=== PATIENT | female | born 1965 | race Caucasian/White ===

== ENCOUNTER 2016-05-02 08:42 | Outpatient (CLI) | END 2016-05-02 08:43 | disposition home or self-care (01) ==

== ENCOUNTER 2016-07-31 18:34 | Emergency (ER) | payer OTHER, MEDICAID ==
[2016-07-31] MEDS ORDERED: SODIUM CHLORIDE 0.9% 1,000 ML IV ONE (19:09)
[2016-07-31] MEDS ORDERED: ONDANSETRON 4 MG/2 ML VIAL IVP STA (19:09)
[2016-07-31] MEDS ORDERED: PROMETHAZINE 25 MG/1 ML VIAL ONE (20:18)
[2016-07-31] MEDS ORDERED: PROMETHAZINE INJ 25 MG in SODIUM CHLORIDE 0.9% 50 ML IV STA (20:19)
[2016-07-31] MEDS ORDERED: ONDANSETRON 4 MG/2 ML VIAL ONE (20:39)
== END 2016-07-31 21:51 | disposition home or self-care (01) ==
DX: R11.2 Nausea with vomiting, unspecified (principal); R51 Headache; C50.919 Malignant neoplasm of unspecified site of unspecified female breast; Z79.810 Long term (current) use of selective estrogen receptor modulators (SERMs)

== ENCOUNTER 2016-08-04 10:09 | Emergency (ER) | payer OTHER, MEDICAID ==
[2016-08-04] MEDS ORDERED: SODIUM CHLORIDE 0.9% 1,000 ML IV ONE ×2 (10:40→14:21)
[2016-08-04] MEDS ORDERED: ONDANSETRON 4 MG/2 ML VIAL IVP STA (10:40)
[2016-08-04] MEDS ORDERED: PROMETHAZINE INJ 25 MG in SODIUM CHLORIDE 0.9% 50 ML IV STA (10:41)
[2016-08-04] MEDS ORDERED: PROMETHAZINE 25 MG/1 ML VIAL ONE (11:12)
[2016-08-04] MEDS ORDERED: MORPHINE 2 MG/ML SYRINGE IVP STA (11:29)
[2016-08-04] MEDS ORDERED: MORPHINE 2 MG/ML SYRINGE ONE (11:37)
== END 2016-08-04 15:00 | disposition home or self-care (01) ==
DX: E86.0 Dehydration (principal); R11.2 Nausea with vomiting, unspecified; R51 Headache

== ENCOUNTER 2016-12-11 09:45 | Outpatient (CLI) | payer OTHER, MEDICAID ==
[2016-12-13 14:24] LABS: ANA SCREEN NEGATIVE (NEGATIVE)
== END 2016-12-11 09:46 | disposition home or self-care (01) ==
LOC: LAB.S 09:45
PROVIDERS: ATTEND Nurse Practitioner Family
DX: M25.50 Pain in unspecified joint (principal)
CPT/HCPCS: 36415; 84443; 85651; 86038; 86140; 86430

== ENCOUNTER 2017-11-21 15:50 | Outpatient (CLI) | payer OTHER | END 2017-11-21 15:51 | disposition home or self-care (01) | LOC: RT.S 15:50 | PROVIDERS: ATTEND Nurse Practitioner Family | DX: R00.2 Palpitations (principal) | CPT/HCPCS: 93005 ==

== ENCOUNTER 2018-02-13 09:13 | Outpatient (CLI) | payer OTHER ==
--- NOTE | 2018-02-13 11:47 | CARDIAC PROCEDURE NOTE ---
DATE OF SERVICE: 02/13/2018 Physician: Helena Veliz MD INDICATION: Palpitations, recurrent. CORONARY RISK FACTORS: None. After signing informed consent, the patient exercised on a Rohan protocol treadmill stress test. Resting EKG: NSR, early repolarization (normal variant). Patient exercised for 8 minutes and 21 seconds. She achieved a peak heart rate of 150 (88% predicted maximum heart rate for age). She achieved 10.16 METS. The patient had minimal shortness of breath, no chest pain, no complaints of palpitations. Peak EKG: within normal limits, no ischemic ST or T wave changes. There were no dysrhythmias seen at rest, with exercise or in recovery. IMPRESSION: 1. Good exercise tolerance. 2. No ischemic changes on a Rohan-protocol treadmill stress test at an adequate level of stress. 2. Consider a 24-hour (or 48-hour) Holter monitor to evaluate her symptoms of palpitations. cc: CHRISTINA Salter TD: 02/13/2018 11:25 MTDD
== END 2018-02-13 09:14 | disposition home or self-care (01) ==
LOC: DI 09:13
PROVIDERS: ATTEND Nurse Practitioner Family
DX: R00.2 Palpitations (principal)

== ENCOUNTER 2018-08-21 07:29 | Outpatient (CLI) | payer OTHER ==
[2018-08-21 11:04] LABS: ALBUMIN 4.2 g/dL (3.2-5.5); ALBUMIN/GLOBULIN RATIO 1.6 (1.0-2.2); ALKALINE PHOSPHATASE 59 IU/L (42-121); ALT ALANINE AMINOTRANSFERASE 15 IU/L (10-60); AST ASPARTATE AMINOTRANSFERASE 19 IU/L (10-42); BILIRUBIN,TOTAL 0.8 mg/dL (0.2-1.0); BUN - BLOOD UREA NITROGEN 18 mg/dL (6-20); CALCIUM 9.5 mg/dL (8.5-10.3); CARBON DIOXIDE - CO2 29 mmol/L (21-32); CHLORIDE 101 mmol/L (101-111); CHOL/HDL RATIO 4.4 (<4.4); CHOLESTEROL 261 mg/dL; CREATININE 0.8 mg/dL (0.4-1.0); GFR - MDRD 76 (>89); GLUCOSE 95 mg/dL (70-100); HDL CHOLESTEROL 60 mg/dL; LDL CHOLESTEROL,CALCULATED 179 mg/dL; SODIUM 137 mmol/L (135-145); TOTAL PROTEIN 6.9 g/dL (6.7-8.2); VLDL CHOLESTEROL 22 mg/dL
[2018-08-21 11:22] LABS: BASOPHILS % (AUTO) 0.4 %; EOSINOPHILS # (AUTO) 0.2 10^3/uL (0.0-0.7); EOSINOPHILS % (AUTO) 4.4 %; HGB - HEMOGLOBIN 12.9 g/dL (12.0-16.0); LYMPHOCYTES # (AUTO) 1.6 10^3/uL (1.5-3.5); LYMPHOCYTES % (AUTO) 43.7 %; MEAN CORPUSCULAR HEMOGLOBIN 30.1 pg (27.0-31.0); MEAN CORPUSCULAR VOLUME 91.1 fL (81.0-99.0); MEAN PLATELET VOLUME 10.4 fL (7.9-10.8); MONOCYTES # (AUTO) 0.3 10^3/uL (0.0-1.0); MONOCYTES % (AUTO) 8.9 %; NEUTROPHILS # (AUTO) 1.6 10^3/uL (1.5-6.6); NEUTROPHILS % (AUTO) 42.6 %; PLT - PLATELET COUNT 136 10^3/uL (130-450); RED BLOOD COUNT 4.31 10^6/uL (4.20-5.40); RED CELL DISTRIBUTION WIDTH 13.5 % (12.0-15.0); WHITE BLOOD COUNT 3.8 x10^3/uL (4.8-10.8)
== END 2018-08-21 07:30 | disposition home or self-care (01) ==
LOC: LAB.F 07:29
PROVIDERS: ATTEND Nurse Practitioner Family
DX: Z85.3 Personal history of malignant neoplasm of breast (principal); Z13.228 Encounter for screening for other metabolic disorders; E78.5 Hyperlipidemia, unspecified
CPT/HCPCS: 36415; 80050; 80061; 83721

== ENCOUNTER 2018-10-23 07:31 | Outpatient (CLI) | payer OTHER ==
[2018-10-23 11:50] LABS: ALBUMIN 4.3 g/dL (3.2-5.5); ALBUMIN/GLOBULIN RATIO 1.4 (1.0-2.2); ALKALINE PHOSPHATASE 61 IU/L (42-121); ALT ALANINE AMINOTRANSFERASE 19 IU/L (10-60); AST ASPARTATE AMINOTRANSFERASE 21 IU/L (10-42); BILIRUBIN,TOTAL 0.6 mg/dL (0.2-1.0); BUN - BLOOD UREA NITROGEN 15 mg/dL (6-20); CALCIUM 9.4 mg/dL (8.5-10.3); CARBON DIOXIDE - CO2 30 mmol/L (21-32); CHLORIDE 100 mmol/L (101-111); CHOL/HDL RATIO 2.8 (<4.4); CHOLESTEROL 176 mg/dL; CREATININE 0.8 mg/dL (0.4-1.0); GFR - MDRD 76 (>89); GLUCOSE 92 mg/dL (70-100); HDL CHOLESTEROL 62 mg/dL; LDL CHOLESTEROL,CALCULATED 99 mg/dL; LDL/HDL RATIO 1.6 (<4.4); SODIUM 139 mmol/L (135-145); TOTAL PROTEIN 7.3 g/dL (6.7-8.2); VLDL CHOLESTEROL 15 mg/dL
== END 2018-10-23 07:32 | disposition home or self-care (01) ==
LOC: LAB.F 07:31
PROVIDERS: ATTEND Physician Assistant Medical
DX: E78.5 Hyperlipidemia, unspecified (principal)
CPT/HCPCS: 36415; 80053; 80061; 83721

== ENCOUNTER 2018-10-25 11:13 | Outpatient (CLI) | payer OTHER ==
[2018-10-25 17:07] LABS: BASOPHILS # (AUTO) 0.1 10^3/uL (0.0-0.1); BASOPHILS % (AUTO) 0.9 %; EOSINOPHILS # (AUTO) 0.2 10^3/uL (0.0-0.7); EOSINOPHILS % (AUTO) 3.6 %; HGB - HEMOGLOBIN 13.1 g/dL (12.0-16.0); LYMPHOCYTES # (AUTO) 2.2 10^3/uL (1.5-3.5); LYMPHOCYTES % (AUTO) 40.3 %; MEAN CORPUSCULAR HEMOGLOBIN 30.2 pg (27.0-31.0); MEAN CORPUSCULAR HGB CONC 31.5 g/dL (32.0-36.0); MEAN CORPUSCULAR VOLUME 95.9 fL (81.0-99.0); MEAN PLATELET VOLUME 11.8 fL (7.9-10.8); MONOCYTES # (AUTO) 0.4 10^3/uL (0.0-1.0); MONOCYTES % (AUTO) 7.4 %; NEUTROPHILS # (AUTO) 2.6 10^3/uL (1.5-6.6); NEUTROPHILS % (AUTO) 47.6 %; PLT - PLATELET COUNT 163 10^3/uL (130-450); RED BLOOD COUNT 4.34 10^6/uL (4.20-5.40); RED CELL DISTRIBUTION WIDTH 12.9 % (12.0-15.0); WHITE BLOOD COUNT 5.5 x10^3/uL (4.8-10.8)
== END 2018-10-25 11:14 | disposition home or self-care (01) ==
LOC: LAB.F 11:13
PROVIDERS: ATTEND Physician Assistant Medical
DX: Z86.2 Personal history of diseases of the blood and blood-forming organs and certain disorders involving the immune mechanism (principal)
CPT/HCPCS: 36415; 82728; 85025

== ENCOUNTER 2018-12-03 12:58 | Day surgery (SDC) | payer OTHER ==
[2018-12-03] MEDS ORDERED: LIDOCAINE-MPF 2% 5 ML VIAL IM ONE (12:59)
[2018-12-03] MEDS ORDERED: ONDANSETRON 4 MG/2 ML VIAL IVP ONE (12:59)
[2018-12-03] MEDS ORDERED: PROPOFOL 200 MG/20 ML VIAL IVP ONE (12:59)
[2018-12-03] MEDS ORDERED: ePHEDrine 50 MG/ML VIAL IVP ONE (12:59)
[2018-12-03] MEDS ORDERED: MIDAZOLAM 2 MG/2 ML VIAL IVP ONE (12:59)
[2018-12-03] MEDS ORDERED: fentaNYL 100 MCG/2 ML VIAL IVP ONE (12:59)
[2018-12-03] MEDS ORDERED: levoFLOXacin 500 MG/100 ML 500 MG/100 ML BAG IV ONE (13:10)
[2018-12-03] MEDS ORDERED: LACTATED RINGERS 1,000 ML IV ONE ×2 (13:35→18:49)
--- NOTE | 2018-12-03 14:03 | ANESTHESIA ---
Pre-Anesthesia VS, & Labs - Diagnosis Hemorrhoids, screening age - Procedure Colonscopy, hemorrhoidectomy Vital Signs: Temp Pulse Resp BP Pulse Ox 36.8 C 90 16 107/80 97 12/03/18 13:10 12/03/18 13:10 12/03/18 13:10 12/03/18 13:10 12/03/18 13:10 Height 5 ft 7 in Weight (kg) 60.6 kg Body Mass Index 20.2 - NPO >8 hours - Is Patient ?: Not Applicable - Lab Results Lab results reviewed: Yes Home Medications and Allergies Home Medications: Ambulatory Orders Atorvastatin [Lipitor] 10 mg PO DAILY 11/28/18 Cholecalciferol (Vitamin D3) [Vitamin D] 2,000 unit PO DAILY 07/15/13 Calcium & Magnesium Carbonate [Antacid Gelatin Caplet] 1 each PO DAILY 08/19/13 Vitamin A 8,000 unit PO DAILY 11/18/13 Atorvastatin [Lipitor] 10 mg PO DAILY 11/28/18 Allergies/Adverse Reactions: Allergies Allergy/AdvReac Type Severity Reaction Status Date / Time No Known Drug Allergies Allergy Verified 08/04/16 10:12 Anes History & Medical History - Anesthetic History Anesthesia Complications: reports: No previous complications Family history of Anesthesia Complications: Denies Family history of Malignant Hyperthermia: Denies - Medical History Cardiovascular: reports: None Pulmonary: reports: None Gastrointestinal: reports: Hemorrhoids Urinary: reports: None Neuro: reports: None Musculoskeletal: reports: Osteopenia Endocrine/Autoimmune: reports: None Blood Disorders: reports: None Skin: reports: None Smoking Status: Never smoker Psychosocial: reports: No issues indicated - Surgical History Eyes Ears Nose Throat (EENT): Tonsil/Adenoidectomy Gynecologic: Mastectomy, Other Exam General: Alert, Oriented x3 Dental: WNL, TMJ Mouth Opening: Greater than 4 Fingerbreadths Neck Mobility: Normal Mallampati classification: II Thyromental Distance: greater than 6 cm Respiratory: Lungs clear Cardiovascular: Regular rate Mental/Cognitive Status: Alert/Oriented X3 Cognitive Status: Within normal limits Plan Anesthesia Type: General Consent for Procedure(s) Verified and Reviewed: Yes Code Status: Attempt Resuscitation ASA classification: 2-Mild systemic disease Is this case an emergency?: No
[2018-12-03] MEDS ORDERED: LIDOCAINE 1% 50 ML MDV ONE (17:34)
[2018-12-03] MEDS ORDERED: BUPIVACAINE 0.5%-EPI 1:200000 PF 30 ML VIAL ONE (17:34)
[2018-12-03] MEDS ORDERED: LIDOCAINE OINTMENT 5% 35.44 GM TUBE ONE (17:48)
[2018-12-03] MEDS ORDERED: ONDANSETRON 4 MG/2 ML VIAL ONE (18:56)
[2018-12-03] MEDS ORDERED: oxyCODONE/ACET 5/325 Prepack 4 PO ONE (20:00)
[2018-12-03 20:15] VITALS: BP 120/72
--- NOTE | 2018-12-04 16:20 | OPERATIVE REPORT ---
Operative Report - General Procedure Date: 12/03/18 Planned Procedure: Internal/external hemorrhoid ectomy Pre-Op Diagnosis: Troublesome internal hemorrhoids and external skin tags. Procedure Performed: Same Post Op Diagnosis: Same - Procedure Note Primary Surgeon: Yann Anesthesia Provider: MIKEY Macedo Anesthesia Technique: General ET tube, Local Pathology: Portions of hemorrhoid tissue to pathology in formalin Estimated Blood Loss (mL): 2 Findings: 2 Large external skin tags containing residual hemorrhoid tissue 1 prolapsing internal hemorrhoid Very mild degree of rectal prolapse Complications: None apparent - Other Other Information/Narrative: This is a continuation of the operative report on Denise Gomez. She underwent a colonoscopy with general anesthesia per Jose Elias Macedo CRNA. That portion of the procedure has been documented in a separate report. At the completion of that procedure, we continued with external hemorrhoidectomy. The perianal region was prepped and draped in the standard surgical fashion.A prolapsing hemorrhoid was identified at the 12 o'clock position and 2 large external skin tags at the 1:00 and 6:00 positions respectively.These areas were anesthetized with a mixture of local anesthetics. Using a 15 blade scalpel, the mucosa over these hemorrhoids was opened so that we could be sure there was no muscle involvement. Once the tissue had been elevated over the muscle, the LigaSure device was used to liberate the vascular tissue from underlying structures. The remaining mucosa was then closed using running 3-0 chromic sutu re. The wound was checked for hemostasis and was completely clean and dry. A Gelfoam pack coated with Lidocaine oinment was placed in the anal canal. All sponge, needle, and instrument counts were correct at the conclusion of the case. The patient was allowed to awaken from anesthesia without difficulty and taken to the postanesthesia care unit in good condition.
== END 2018-12-03 20:20 | disposition home or self-care (01) ==
LOC: SDS 12:58 → MS3 19:00 → SDS 20:20
PROVIDERS: ATTEND Surgery
PROC: 06BY0ZC Excision of Hemorrhoidal Plexus, Open Approach (ICD-10-PCS; principal; 2018-12-03 14:30)
PROC: 0DJD8ZZ Inspection of Lower Intestinal Tract, Via Natural or Artificial Opening Endoscopic (ICD-10-PCS; 2018-12-03 14:30)
DX: Z12.11 Encounter for screening for malignant neoplasm of colon (principal); K64.8 Other hemorrhoids; K64.4 Residual hemorrhoidal skin tags; K62.3 Rectal prolapse; M85.80 Other specified disorders of bone density and structure, unspecified site
CPT/HCPCS: 45378; 46260; A9270; J7120

== ENCOUNTER 2019-02-13 09:03 | Outpatient (CLI) | payer OTHER ==
--- NOTE | 2019-02-13 10:47 | Ultrasound Report ---
Reason: MULTIPLE THYROID NODULES Procedure Date: 02/13/2019 Accession Number: [id number] / [id number] Procedure: US - Head or Neck Soft Tissue CPT Code: FULL RESULT: EXAM: THYROID ULTRASOUND EXAM DATE: 02/13/2019 09:58 AM. CLINICAL HISTORY: MULTIPLE THYROID NODULES. COMPARISON: HEAD OR NECK SOFT TISSUE 05/02/2016 8:54 AM. TECHNIQUE: Real time sonographic imaging of the thyroid was performed by the donkey engine firer/fireman. Multiple guest service representative static images were saved for review. FINDINGS: THYROID GLAND: Right Lobe: 5.4 x 1.1 x 1.6 cm, volume 4.9 cc. Normal background echotexture. Right Lobe Nodules: 1. Posterior mid to lower pole solid hypoechoic nodule measuring 10 x 6 x 8 mm, previously measured at 8 x 5 x 7 mm. Left Lobe: 4.7 x 1.4 x 1.5 cm, volume 5.1 cc. Normal background echotexture. Left Lobe Nodules: 1. Posterior mid to lower pole solid hypoechoic nodule measuring 11 x 5 x 9 mm, previously measured at 12 x 6 x 7 mm. 2. Small complex mid gland nodules measuring 7 x 3 x 4 mm and 4 x 3 x 3 mm, respectively. Isthmus: 0.2 cm AP. Isthmic Nodules: None. LYMPH NODES: No adenopathy demonstrated in the central or lateral compartment. OTHER: None. IMPRESSION: 1. Bilateral thyroid nodules measuring up to 10 mm on the right, and 11 mm on the left. The dominant right thyroid nodule may be slightly increased in size from prior. Right nodule #1 and left nodule #1 meet criteria for consideration of ultrasound-guided FNA biopsy, if not already performed. Otherwise, at a minimum, recommend continued ultrasound surveillance in 12 months. Management recommendations are based on 2015 [place] [employer] Management Guidelines for Adult Patients with Thyroid Nodules and Differentiated Thyroid Cancer. RADIA
== END 2019-02-13 09:04 | disposition home or self-care (01) ==
LOC: DI 09:03
PROVIDERS: ATTEND Physician Assistant Medical
DX: E04.2 Nontoxic multinodular goiter (principal)
CPT/HCPCS: 76536

== ENCOUNTER 2019-02-14 14:32 | Outpatient (CLI) | payer OTHER ==
--- NOTE | 2019-02-14 15:16 | XRAY Report ---
Reason: INTRACTABLE RIGHT HEEL PAIN, ACHILLES TENDINITIS Procedure Date: 02/14/2019 Accession Number: [id number] / [id number] Procedure: XRS - Foot 3 View RT CPT Code: FULL RESULT: EXAM: RIGHT FOOT RADIOGRAPHY EXAM DATE: 02/14/2019 02:50 PM. CLINICAL HISTORY: Intractable right heel pain, achilles tendinitis. COMPARISON: None. TECHNIQUE: 3 views. FINDINGS: Bones: Normal. No fractures or bone lesions. Joints: Normal. No subluxations. Soft Tissues: Normal. No soft tissue swelling. IMPRESSION: No radiographic enthesopathy is detected. RECOMMENDATION: Focused Achilles tendon ultrasound is sensitive and specific for partial-thickness as well as full-thickness tears of the Achilles tendon. RADIA
== END 2019-02-14 14:33 | disposition home or self-care (01) ==
LOC: DI.S 14:32
PROVIDERS: ATTEND Physician Assistant Medical
DX: M79.671 Pain in right foot (principal)

== ENCOUNTER 2019-02-19 13:22 | Outpatient (CLI) | payer OTHER ==
--- NOTE | 2019-02-19 15:05 | XRAY Report ---
Reason: RT HEEL PAIN Procedure Date: 02/19/2019 Accession Number: [id number] / [id number] Procedure: XRS - Calcaneus RT CPT Code: FULL RESULT: EXAM: RIGHT CALCANEUS RADIOGRAPHY EXAM DATE: 02/19/2019 01:33 PM. CLINICAL HISTORY: Right heel pain. COMPARISON: FOOT 3 VIEW RT 02/14/2019 3:01 PM. TECHNIQUE: 2 views. FINDINGS: Bones: Normal. No fractures or bone lesions. No calcaneal plantar osteophytic spurring. Joints: Normal. No subluxations. Soft Tissues: Normal. No soft tissue swelling. IMPRESSION: Normal calcaneus radiography. RADIA
== END 2019-02-19 13:23 | disposition home or self-care (01) ==
LOC: DI.S 13:22
PROVIDERS: ATTEND Physician Assistant Medical
DX: M79.671 Pain in right foot (principal)

== ENCOUNTER 2019-02-26 08:11 | Outpatient (CLI) | payer OTHER ==
--- NOTE | 2019-02-26 09:53 | MRI Report ---
Reason: SWELLING AND PAIN R ACHILLES TENDON Procedure Date: 02/26/2019 Accession Number: [id number] / [id number] Procedure: MRI - Foot RT W/O CPT Code: FULL RESULT: EXAM: RIGHT ANKLE/HINDFOOT MRI WITHOUT CONTRAST EXAM DATE: 02/26/2019 08:28 AM. CLINICAL HISTORY: SWELLING AND PAIN R ACHILLES TENDON. COMPARISON: CALCANEUS RT 02/19/2019 1:28 PM. TECHNIQUE: Multiplanar, multisequence T1-weighted and fluid-sensitive sequences of the ankle/hindfoot without contrast. Other: None. FINDINGS: Bones: No fractures or subluxations. No marrow edema. No bone lesions. Articular Cartilage: Unremarkable. Ligaments: The anterior and posterior tibiofibular, anterior and posterior talofibular, and calcaneofibular ligaments are intact. The deep and superficial deltoid and spring ligaments are intact. Anterior Tendons: The tibialis anterior, extensor hallucis longus, and extensor digitorum longus tendons are unremarkable. Medial Tendons: The tibialis posterior, flexor digitorum longus, and flexor hallucis longus tendons are unremarkable. Lateral Tendons: The peroneus brevis and longus are unremarkable. Achilles Tendon: The Achilles tendon is unremarkable. Musculature: No edema or fatty atrophy. Other: No effusions. The contents of the sinus tarsi and tarsal tunnel are unremarkable. No plantar fasciitis. The subcutaneous tissues are unremarkable. IMPRESSION: No MRI abnormalities in the ankle/hindfoot. RADIA
== END 2019-02-26 08:12 | disposition home or self-care (01) ==
LOC: DI 08:11
PROVIDERS: ATTEND Podiatrist
DX: M25.572 Pain in left ankle and joints of left foot (principal)

== ENCOUNTER 2019-03-20 10:09 | Outpatient (CLI) | payer OTHER ==
[~2019-03-20 10:09] MED LIST: BUFFERED LIDOCAINE 10 ML SYRINGE ONE
[2019-03-20] MEDS ORDERED: BUFFERED LIDOCAINE 10 ML SYRINGE ONE (10:30)
[2019-03-20] MEDS ORDERED: BUFFERED LIDOCAINE 10 ML SYRINGE IU ONE (16:02)
--- NOTE | 2019-03-21 14:11 | Ultrasound Report ---
Reason: MULTIPLE THYROID NODULES Procedure Date: 03/20/2019 Accession Number: [id number] / [id number] Procedure: US - FNA Bx w/US Gnd les CPT Code: 58046 Final Report FULL RESULT: EXAM: THYROID FINE NEEDLE ASPIRATION EXAM DATE: 03/20/2019 12:09 PM. CLINICAL HISTORY: Multiple thyroid nodules. COMPARISON: None. TECHNIQUE: The risks, benefits, and alternatives of the procedure were discussed with the patient. All questions were answered. Written and verbal consent were obtained. A site was marked over the left thyroid nodule in question under live sonographic evaluation; the same was subsequently performed for the right thyroid nodule, then subsequently prepped and draped in a sterile manner. Local anesthesia was performed with 1% lidocaine. A single 22 gauge fine-needle aspirates/past was performed through the left thyroid nodule in question, then passed to the enrollment counselor for preparation. Additional passes were not performed due to the extreme posterior and inferior location of the nodule, safety concern. Additionally, during the procedure, appearance of the nodule raised question of extrathyroidal location, such as parathyroid gland. Local anesthesia was performed with 1% lidocaine. A total of 4 22 gauge fine-needle aspirates/passes were performed through the right thyroid nodule in question, then passed to the enrollment counselor for preparation. Estimated blood loss was 0 mL. Sonographic images demonstrate needle placement within each of the nodules in question. The patient appeared to tolerate the procedure well. FINDINGS IMPRESSION: Routine FNA sampling of a right thyroid nodule. Limited sampling of an extreme posterior and inferior nodule posterior to the lower pole of the left thyroid gland, potentially extrathyroidal. Recommendation: Should tissue sampling of the left-sided nodule in question be insufficient, would recommend follow-up ultrasound surveillance in 1 year to guide whether the risk-benefit ratio justifies repeat tissue sampling attempt. RADIA
== END 2019-03-20 10:10 | disposition home or self-care (01) ==
LOC: DI 10:09
PROVIDERS: ATTEND Physician Assistant Medical
DX: E04.2 Nontoxic multinodular goiter (principal)
CPT/HCPCS: 10005

== ENCOUNTER 2020-01-07 07:07 | Outpatient (CLI) | payer OTHER | END 2020-01-07 07:08 | disposition home or self-care (01) | LOC: DI.S 07:07 | PROVIDERS: ATTEND Physician Assistant | DX: Z53.9 Procedure and treatment not carried out, unspecified reason (principal) ==

== ENCOUNTER 2020-01-08 07:07 | Outpatient (CLI) | payer OTHER ==
[2020-01-08 15:50] LABS: CHOL/HDL RATIO 2.5 (<4.4); CHOLESTEROL 177 mg/dL; HDL CHOLESTEROL 70 mg/dL; LDL CHOLESTEROL,CALCULATED 95 mg/dL; LDL/HDL RATIO 1.4 (<4.4); VLDL CHOLESTEROL 12 mg/dL
--- NOTE | 2020-01-08 16:19 | XRAY Report ---
PROCEDURE: Clavicle LT INDICATIONS: LEFT CLAVICLE PAIN TECHNIQUE: 2 views of the clavicle were acquired. COMPARISON: None. FINDINGS: Bones: No fractures or dislocations. No suspicious bony lesions. Soft tissues: No suspicious soft tissue calcifications. IMPRESSION: No fracture. No osseous lesion. If there is continued clinical concern for pathology, then repeat dipika in film radiographs (7-10 days) or advanced imaging (CT, MR, bone scan) should be considered for furt her evaluation. Reviewed by: Monica Meléndez MD, PhD on 01/08/2020 4:18 PM PDT Approved by: Monica Meléndez MD, PhD on 01/08/2020 4:18 PM PDT Station ID: [id number]
== END 2020-01-08 07:08 | disposition home or self-care (01) ==
LOC: DI.S 07:07
PROVIDERS: ATTEND Physician Assistant
DX: M25.512 Pain in left shoulder (principal); M89.8X8 Other specified disorders of bone, other site; E78.5 Hyperlipidemia, unspecified
CPT/HCPCS: 36415; 80061; 83721

== ENCOUNTER 2020-04-06 07:42 | Outpatient (CLI) | payer OTHER ==
[2020-04-06 15:16] LABS: BASOPHILS % (AUTO) 0.9 %; EOSINOPHILS # (AUTO) 0.3 10^3/uL (0.0-0.7); EOSINOPHILS % (AUTO) 5.7 %; HGB - HEMOGLOBIN 13.6 g/dL (12.0-16.0); LYMPHOCYTES % (AUTO) 43.9 %; MEAN CORPUSCULAR HEMOGLOBIN 30.3 pg (27.0-31.0); MEAN CORPUSCULAR HGB CONC 32.3 g/dL (32.0-36.0); MEAN CORPUSCULAR VOLUME 93.8 fL (81.0-99.0); MEAN PLATELET VOLUME 11.9 fL (7.9-10.8); MONOCYTES # (AUTO) 0.4 10^3/uL (0.0-1.0); NEUTROPHILS # (AUTO) 1.9 10^3/uL (1.5-6.6); NEUTROPHILS % (AUTO) 41.5 %; PLT - PLATELET COUNT 171 10^3/uL (130-450); RED BLOOD COUNT 4.49 10^6/uL (4.20-5.40); RED CELL DISTRIBUTION WIDTH 12.8 % (12.0-15.0); WHITE BLOOD COUNT 4.6 x10^3/uL (4.8-10.8)
[2020-04-06 15:38] LABS: ALBUMIN 4.5 g/dL (3.2-5.5); ALBUMIN/GLOBULIN RATIO 1.5 (1.0-2.2); BILIRUBIN,TOTAL 0.9 mg/dL (0.2-1.0); CALCIUM 9.6 mg/dL (8.5-10.3); CREATININE 0.9 mg/dL (0.4-1.0); TOTAL PROTEIN 7.6 g/dL (6.7-8.2)
== END 2020-04-06 07:43 | disposition home or self-care (01) ==
LOC: LAB.S 07:42
PROVIDERS: ATTEND Physician Assistant
DX: I89.0 Lymphedema, not elsewhere classified (principal); D72.819 Decreased white blood cell count, unspecified; E04.1 Nontoxic single thyroid nodule; E78.5 Hyperlipidemia, unspecified; Z85.3 Personal history of malignant neoplasm of breast; Z78.0 Asymptomatic menopausal state
CPT/HCPCS: 36415; 80050

== ENCOUNTER 2020-04-11 11:06 | Outpatient (CLI) | payer OTHER ==
--- NOTE | 2020-04-11 15:22 | Ultrasound Report ---
PROCEDURE: Head or Neck Soft Tissue INDICATIONS: LYMPHEDEMA, PAIN IN L SHOULDER, CLAVICLE PAIN TECHNIQUE: Real time scanning was performed of the neck region of interest, with image documentation . COMPARISON: Same day ultrasound of the chest/clavicle region. FINDINGS: In the region of clinical concern in the left lateral neck there are a few small nonenlarged lymph no rich. Preserved fatty hilum. No fluid collection. The submandibular gland partially visualized appears normal. IMPRESSION: No enlarged lymph nodes or fluid collection in the region of clinical interest. Reviewed by: Eugene Pate MD on 04/11/2020 2:20 PM [facility] Approved by: Eugene Pate MD on 04/11/2020 2:20 PM [facility] Station ID: [id number]
--- NOTE | 2020-04-11 15:29 | Ultrasound Report ---
PROCEDURE: Chest INDICATIONS: LYMPHEDEMA, PAIN IN L SHOULDER, CLAVICLE PAIN TECHNIQUE: Real-time scanning was performed in the region of interest in the left clavicle/shoulder palpable abn ormality. COMPARISON: Same day left neck ultrasound. FINDINGS: Palpable abnormality in the left clavicle region. There is an area of hypoechogenicity measuring 1.6 x 1.1 x 0.3 cm which is asymmetric compared to the contralateral right side. This is superficial to t he clavicle. No internal vascularity. No enlarged lymph nodes. IMPRESSION: In the region of the palpable abnormality is a small area of asymmetric hypoechogenicity without bloo d flow measuring 1.6 cm. This could represent a small hematoma. Less likely a lymph node or mass. Recommend continued clinical surveillance. If the abnormality is felt to increase in size recommend r epeat ultrasound and biopsy. Reviewed by: Eugene Pate MD on 04/11/2020 2:28 PM [facility] Approved by: Eugene Pate MD on 04/11/2020 2:28 PM [facility] Station ID: [id number]
== END 2020-04-11 11:07 | disposition home or self-care (01) ==
LOC: DI 11:06
PROVIDERS: ATTEND Physician Assistant
DX: R93.6 Abnormal findings on diagnostic imaging of limbs (principal); I89.0 Lymphedema, not elsewhere classified; M25.512 Pain in left shoulder; M89.8X8 Other specified disorders of bone, other site; Z85.3 Personal history of malignant neoplasm of breast

== ENCOUNTER 2020-08-23 09:20 | Outpatient (CLI) | payer OTHER ==
--- NOTE | 2020-08-24 13:23 | Ultrasound Report ---
LIMITED ULTRASOUND OF LEFT BREAST: 08/23/2020 CLINICAL: Palpable left breast lump. No prior exams were available for comparison. Color flow and real-time ultrasound of the left breast 2 o'clock region were performed. Tolbert scale images of the real-time examination were reviewed. There is are two lymph nodse in the left axillary tail at the 2:00 and 2:30 positions. These normal lymph nodes display a fatty hilum. One measures 1.5 x 0.8 x 0.5 cm with a 0.2 cm cortex, and the oth er is 1.0 x 0.6 x 0.5 cm with a 0.2 cm cortical thickness. These nodes have not significantly changed since an MRI dated 01.20.16, and correlate as palpated. Color flow imaging demonstrates that there i s vascularity present. IMPRESSION: PROBABLY BENIGN The lymph nodes are most likely reactive, normal lymph nodes and are probably benign. A follow-up ul trasound in 3 months is recommended. Findings and recommendations were conveyed to the patient at time of exam. This exam was interpreted at Station ID: [id number]. Electronically Signed By: Brittni flores/:08/23/2020 11:49:44 Ultrasound BI-RADS: 3 Probably benign BI-RADS CATEGORY: (3) - 3 Ultrasound [id number] 3 month follow-up LATERALITY: (L)
== END 2020-08-23 09:21 | disposition home or self-care (01) ==
LOC: DI 09:20
PROVIDERS: ATTEND Physician Assistant
DX: R59.0 Localized enlarged lymph nodes (principal)

== ENCOUNTER 2020-08-30 08:00 | Outpatient (CLI) | payer OTHER ==
[2020-08-30 20:21] LABS: BASOPHILS % (AUTO) 0.6 %; EOSINOPHILS # (AUTO) 0.6 10^3/uL (0.0-0.7); EOSINOPHILS % (AUTO) 8.7 %; HCT - HEMATOCRIT 40.7 % (37.0-47.0); HGB - HEMOGLOBIN 12.9 g/dL (12.0-16.0); LYMPHOCYTES # (AUTO) 2.3 10^3/uL (1.5-3.5); LYMPHOCYTES % (AUTO) 34.1 %; MEAN CORPUSCULAR HGB CONC 31.7 g/dL (32.0-36.0); MEAN CORPUSCULAR VOLUME 94.7 fL (81.0-99.0); MEAN PLATELET VOLUME 11.6 fL (7.9-10.8); MONOCYTES # (AUTO) 0.5 10^3/uL (0.0-1.0); MONOCYTES % (AUTO) 7.3 %; NEUTROPHILS # (AUTO) 3.3 10^3/uL (1.5-6.6); NEUTROPHILS % (AUTO) 49.3 %; PLT - PLATELET COUNT 176 10^3/uL (130-450); RED CELL DISTRIBUTION WIDTH 13.1 % (12.0-15.0); WHITE BLOOD COUNT 6.7 x10^3/uL (4.8-10.8)
[2020-08-30 20:33] LABS: ALBUMIN 4.3 g/dL (3.2-5.5); ALBUMIN/GLOBULIN RATIO 1.3 (1.0-2.2); BILIRUBIN,TOTAL 0.3 mg/dL (0.2-1.0); CREATININE 0.7 mg/dL (0.4-1.0); TOTAL PROTEIN 7.5 g/dL (6.7-8.2)
== END 2020-08-30 23:59 | disposition home or self-care (01) ==
LOC: LAB.S 08:00
PROVIDERS: ATTEND Physician Assistant Medical
DX: J01.90 Acute sinusitis, unspecified (principal); D72.819 Decreased white blood cell count, unspecified; R53.83 Other fatigue; T78.49XA Other allergy, initial encounter
CPT/HCPCS: 36415; 80053; 85025

== ENCOUNTER 2020-10-28 14:40 | Outpatient (CLI) | payer OTHER | END 2020-10-28 14:41 | disposition EMS.NT | LOC: EMS 14:40 | DX: R55 Syncope and collapse (principal) ==

== ENCOUNTER 2020-12-17 13:43 | Outpatient (CLI) | payer OTHER ==
--- NOTE | 2020-12-20 15:58 | Ultrasound Report ---
LIMITED ULTRASOUND OF LEFT BREAST: 12/17/2020 CLINICAL: Short term follow up for the left breast. Comparison is made to exam dated: 08/23/2020 ultrasound - [facility]. Color flow ultrasound of the left breast 2 o'clock region was performed. Tolbert scale images of the r eal-time examination were reviewed. There is a benign normal lymph node in the left axillary tail. This lymph node displays fatty hilum. This correlates as palpated. Color flow imaging demonstrates that there is vascularity present. IMPRESSION: BENIGN There is no sonographic evidence of malignancy. Benign normal lymph node in the left axillary tail. This exam was interpreted at Station ID: [id number]. Electronically Signed By: Jhon Underwood M.D. jr/:12/20/2020 15:27:50 Ultrasound BI-RADS: 2 Benign BI-RADS CATEGORY: (2) - 2 Unspecified - other recall n/a LATERALITY: (B)
== END 2020-12-17 13:44 | disposition home or self-care (01) ==
LOC: DI 13:43
PROVIDERS: ATTEND Physician Assistant
DX: R92.8 Other abnormal and inconclusive findings on diagnostic imaging of breast (principal)

== ENCOUNTER 2021-07-08 14:33 | Outpatient (CLI) | payer OTHER ==
[2021-07-08 20:13] LABS: BASOPHILS % (AUTO) 0.7 %; EOSINOPHILS # (AUTO) 0.2 10^3/uL (0.0-0.7); EOSINOPHILS % (AUTO) 2.9 %; HCT - HEMATOCRIT 41.6 % (37.0-47.0); HGB - HEMOGLOBIN 13.5 g/dL (12.0-16.0); LYMPHOCYTES # (AUTO) 2.4 10^3/uL (1.5-3.5); MEAN CORPUSCULAR HEMOGLOBIN 30.1 pg (27.0-31.0); MEAN CORPUSCULAR HGB CONC 32.5 g/dL (32.0-36.0); MEAN CORPUSCULAR VOLUME 92.9 fL (81.0-99.0); MEAN PLATELET VOLUME 11.6 fL (7.9-10.8); MONOCYTES # (AUTO) 0.3 10^3/uL (0.0-1.0); MONOCYTES % (AUTO) 5.2 %; PLT - PLATELET COUNT 184 10^3/uL (130-450); RED BLOOD COUNT 4.48 10^6/uL (4.20-5.40); WHITE BLOOD COUNT 5.9 x10^3/uL (4.8-10.8)
[2021-07-08 20:31] LABS: ALBUMIN 4.6 g/dL (3.2-5.5); ALBUMIN/GLOBULIN RATIO 1.6 (1.0-2.2); ALKALINE PHOSPHATASE 63 IU/L (42-121); ALT ALANINE AMINOTRANSFERASE 18 IU/L (10-60); AST ASPARTATE AMINOTRANSFERASE 23 IU/L (10-42); BILIRUBIN,TOTAL 0.5 mg/dL (0.2-1.0); BUN - BLOOD UREA NITROGEN 16 mg/dL (6-20); CALCIUM 9.5 mg/dL (8.5-10.3); CARBON DIOXIDE - CO2 29 mmol/L (21-32); CHLORIDE 99 mmol/L (101-111); CHOL/HDL RATIO 2.7 (<4.4); CHOLESTEROL 195 mg/dL; CREATININE 0.7 mg/dL (0.4-1.0); GFR - MDRD 88 (>89); GLUCOSE 127 mg/dL (70-100); HDL CHOLESTEROL 72 mg/dL; LDL CHOLESTEROL,CALCULATED 108 mg/dL; LDL/HDL RATIO 1.5 (<4.4); POTASSIUM 3.5 mmol/L (3.5-5.0); SODIUM 137 mmol/L (135-145); TOTAL PROTEIN 7.4 g/dL (6.7-8.2); TRIGLYCERIDES 76 mg/dL; VLDL CHOLESTEROL 15 mg/dL
[2021-07-08 20:42] LABS: THYROID STIMULATING HORMONE 1.18 uIU/mL (0.34-5.60)
== END 2021-07-08 14:34 | disposition home or self-care (01) ==
LOC: LAB.S 14:33
PROVIDERS: ATTEND Registered Nurse
DX: E78.5 Hyperlipidemia, unspecified (principal); Z79.899 Other long term (current) drug therapy
CPT/HCPCS: 36415; 80050; 80061; 83721

== ENCOUNTER 2022-08-23 09:31 | Outpatient (CLI) | payer OTHER ==
--- NOTE | 2022-08-24 10:09 | Ultrasound Report ---
LIMITED ULTRASOUND OF LEFT BREAST AND AXILLA: 08/23/2022 CLINICAL: Patient returns today for ultrasound to evaluate a palpable abnormality in the left breast. Comparison is made to exams dated: 12/17/2020 ultrasound and 08/23/2020 ultrasound - [facility]. Color flow and real-time ultrasound of the left breast 2 o'clock, and axilla regions were performed. Tolbert scale images of the real-time examination were reviewed. There is a 1.9 cm x 2 cm x 1 cm irregular mass with an indistinct and angular margin in the left [address] at 2 o'clock posterior depth 7 cm from the nipple. This irregular mass displays posterior acousti c shadowing. This abnormality is increased in size. Color flow imaging demonstrates that there is a djacent vascularity. There are two benign appearing, normal sized lymph nodes immediately adjacent to this mass. IMPRESSION: SUSPICIOUS OF MALIGNANCY The 1.9 cm x 2 cm x 1 cm irregular mass in the left breast is suspicious of malignancy, less likely s carring. An ultrasound guided biopsy is recommended. Findings and recommendations were discussed wi th the patient in person by Dr. Edy Rey at time of exam. Adjacent lymph nodes are normal size. This exam was interpreted at Station ID: [id number]. Electronically Signed By: Brittni flores/:08/23/2022 10:29:27 Ultrasound BI-RADS: 4 Suspicious for malignancy BI-RADS CATEGORY: (4) - 4 Biopsy [id number] Immediate follow-up LATERALITY: (L)
== END 2022-08-23 09:32 | disposition home or self-care (01) ==
LOC: DI 09:31
PROVIDERS: ATTEND Registered Nurse
DX: N63.21 Unspecified lump in the left breast, upper outer quadrant (principal)

== ENCOUNTER 2022-08-31 07:11 | Outpatient (CLI) | payer OTHER ==
[2022-08-31 14:31] LABS: HGB - HEMOGLOBIN 13.2 g/dL (12.0-16.0); MEAN CORPUSCULAR HEMOGLOBIN 30.6 pg (27.0-31.0); MEAN CORPUSCULAR HGB CONC 32.2 g/dL (32.0-36.0); MEAN CORPUSCULAR VOLUME 94.9 fL (81.0-99.0); MEAN PLATELET VOLUME 11.6 fL (7.9-10.8); RED BLOOD COUNT 4.32 10^6/uL (4.20-5.40); WHITE BLOOD COUNT 4.9 x10^3/uL (4.8-10.8)
[2022-08-31 15:02] LABS: FREE T4 (FREE THYROXINE) 0.83 ng/dL (0.58-1.64); THYROID STIMULATING HORMONE 1.96 uIU/mL (0.34-5.60)
[2022-08-31 15:05] LABS: CHOL/HDL RATIO 2.8 (<4.4); CHOLESTEROL 200 mg/dL; HDL CHOLESTEROL 71 mg/dL; LDL CHOLESTEROL,CALCULATED 107 mg/dL; LDL/HDL RATIO 1.5 (<4.4); TRIGLYCERIDES 112 mg/dL; VLDL CHOLESTEROL 22 mg/dL
[2022-08-31 15:06] LABS: FERRITIN 87.1 ng/mL (11.0-306.8)
== END 2022-08-31 07:12 | disposition home or self-care (01) ==
LOC: LAB.S 07:11
PROVIDERS: ATTEND Nurse Practitioner
DX: L65.9 Nonscarring hair loss, unspecified (principal); E78.5 Hyperlipidemia, unspecified
CPT/HCPCS: 36415; 80061; 82728; 83721; 84439; 84443; 85027

== ENCOUNTER 2022-09-05 08:10 | Outpatient (CLI) | payer OTHER ==
[2022-09-05] MEDS ORDERED: LIDOCAINE-MPF 1% 5 ML VIAL ONE (08:39)
[2022-09-05] MEDS: LIDOCAINE-MPF 1% 5 ML VIAL TD ONE (16:02)
--- NOTE | 2022-09-07 15:40 | Ultrasound Report ---
ULTRASOUND GUIDED BIOPSY LEFT BREAST USING VACUUM DEVICE WITH MARKING DEVICE INSERTED AND POST ULTRAS OUND IMAGIN09/05/2022 CLINICAL: Left breast mass. PATIENT CONSENT: Risks (minor bleeding, infection, vasovagal reaction and repeat procedure), benefits and alternatives were explained to the patient and written informed consent was obtained. Correlation is made to exams dated: 08/23/2022 ultrasound, 12/17/2020 ultrasound, and 08/23/2020 ultras ound - [facility]. An ultrasound guided biopsy using real-time ultrasound was performed for the concerning 1.9 cm x 2 cm x 1 cm mass located in the left breast at 2 o'clock posterior depth 7 cm from the nipple. This was described on the previous ultrasound report. The skin was prepped in the usual manner. Local anesth etic was administered to the access site. A skin titus was made in the breast. A 12 gauge biopsy nee dle was placed adjacent to the abnormality under ultrasound guidance. Once the needle was documented to be in the correct location, four specimens were obtained using a vacuum assisted device. A clip was inserted into the biopsy cavity. Post procedure ultrasound imaging demonstrates the location dev ice at the targeted area. The specimens were sent to the laboratory for pathological analysis. IMPRESSION: ULTRASOUND GUIDED BIOPSY MALIGNANT Ultrasound guided biopsy of the 1.9 cm x 2 cm x 1 cm mass in the left breast at 2 o'clock posterior d epth 7 cm from the nipple was successful. 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 Pathology results are concordant with imaging findings. Recommend oncologic and surgical consul tation. This exam was interpreted at Station ID: [id number]. Luis Mendez M.D. lc/:09/07/2022 14:59:28 BI-RADS CATEGORY: () - Unspecified - other recall n/a LATERALITY: (B)
== END 2022-09-05 08:11 | disposition home or self-care (01) ==
LOC: DI 08:10
PROVIDERS: ATTEND Registered Nurse
DX: C50.412 Malignant neoplasm of upper-outer quadrant of left female breast (principal)
CPT/HCPCS: 19083

== ENCOUNTER 2022-10-23 07:33 | Outpatient (CLI) | payer OTHER ==
[2022-10-23] MEDS ORDERED: LIDOCAINE-MPF 1% 5 ML VIAL ONE ×2 (08:30→09:46)
[2022-10-23] MEDS ORDERED: fentaNYL 100 MCG/2 ML VIAL ONE (08:35)
[2022-10-23] MEDS ORDERED: ONDANSETRON 4 MG/2 ML VIAL ONE (08:35)
[2022-10-23] MEDS ORDERED: MIDAZOLAM 2 MG/2 ML VIAL ONE (08:35)
[2022-10-23 08:49] LABS: INR 1.1 (0.8-1.2); PT - PROTHROMBIN TIME 12.4 secs (9.9-12.6)
[2022-10-23] MEDS ORDERED: ONDANSETRON 4 MG/2 ML VIAL IVP STA (08:50)
[2022-10-23] MEDS ORDERED: LACTATED RINGERS 1,000 ML IV ONE ×2 (09:40→10:40)
[2022-10-23] MEDS ORDERED: fentaNYL 100 MCG/2 ML VIAL IVP STA (09:40)
[2022-10-23] MEDS ORDERED: MIDAZOLAM 2 MG/2 ML VIAL IVP ONE (09:40)
--- NOTE | 2022-10-23 12:15 | XRAY Report ---
PROCEDURE: No Charge Procedure INDICATIONS: POST LUNG BIOPSY TECHNIQUE: AP portable upright view of the chest was acquired. COMPARISON: Chest CT 10/10/2022 FINDINGS: Cardiomediastinal contour and central vasculature are normal. The 5 cm mass is present in the left lower lobe. There is no post biopsy pneumothorax. There are no p leural effusions. The right lung is normally aerated. Small surgical clips present in the left axilla. Osseous structures are within normal limits. IMPRESSION: 1. No left pneumothorax post left lower lobe biopsy. Reviewed by: Brittni Bangura MD on 10/23/2022 12:13 PM PDT Approved by: Brittni Bangura MD on 10/23/2022 12:13 PM PDT Station ID: [id number]
[2022-10-23 14:15] VITALS: BP 110/62
--- NOTE | 2022-10-23 15:15 | CT Report ---
PROCEDURE: LT LUNG BX PERC Sedation analgesia for 30 minutes. INDICATIONS: LUNG MASS, HX LEFT BREAST CA TECHNIQUE: The indications, alternatives, benefits, risks, and possible complications of the procedure were comm unicated to the patient. Informed written consent from the patient was obtained and placed in the art. Continuous EKG and hemodynamic monitoring was started by trained personnel. For radiation dose reduction, the following was used: automated exposure control, adjustment of mA and/or kV according to patient size. The patient was brought to the CT suite and stave log cut off saw operator spiral CT imaging was performed with localization g rid. The appropriate site for percutaneous access to the biopsy target was marked, was prepped and d raped sterilely, and was infused with local anaesthesia. Under CT guidance, a core biopsy trocar and needle set was advanced to the biopsy target, and specimen(s) were obtained. The trocar and needle were then removed, and the patient was sent for post-procedure monitoring. COMPARISON: Chest CT 10/10/2022 FINDINGS: Biopsy site: Left lower lobe lung mass Needle: 20 gauge biopsy needle with a 19-gauge introducer trocar. Number of passes: 6 Medications: 1% lidocaine for local anaesthesia. IV Fentanyl and Versed for conscious sedation for 30 minutes (see nursing record). Complications: None. Post procedure chest x-ray is negative for pneumothorax. IMPRESSION: Successful CT-guided biopsy of left lower lobe lung mass. Pathology is pending. Reviewed by: Brittni Bangura MD on 10/23/2022 3:14 PM PDT Approved by: Brittni Bangura MD on 10/23/2022 3:14 PM PDT Station ID: [id number]
== END 2022-10-23 07:34 | disposition home or self-care (01) ==
LOC: DI 07:33
PROVIDERS: ATTEND Internal Medicine Hematology & Oncology
DX: R91.8 Other nonspecific abnormal finding of lung field (principal); C50.912 Malignant neoplasm of unspecified site of left female breast
CPT/HCPCS: 32408; 36415; 85610; J7120; 85049

== ENCOUNTER 2022-10-30 08:46 | Day surgery (SDC) | payer OTHER ==
[~2022-10-30 08:46] MED LIST changes: +ACETAMINOPHEN 500 MG TABLET PO ONE; -BUFFERED LIDOCAINE 10 ML SYRINGE ONE; +ceFAZolin 2 GM VIAL ONE
[2022-10-30] MEDS ORDERED: LACTATED RINGERS 1,000 ML IV ONE ×2 (08:52→11:05)
[2022-10-30] MEDS ORDERED: LIDOCAINE 1%-EPI 1:100000 20 ML MDV ONE (08:56)
[2022-10-30] MEDS ORDERED: BUPIVACAINE 0.25% PF 30 ML VIAL ONE (08:56)
[2022-10-30] MEDS ORDERED: fentaNYL 100 MCG/2 ML VIAL IVP PRN (09:13)
[2022-10-30] MEDS ORDERED: ePHEDrine 50 MG/ML VIAL IVP PRN (09:13)
[2022-10-30] MEDS ORDERED: ONDANSETRON 4 MG/2 ML VIAL IVP PRN ×2 (09:13→11:07)
[2022-10-30] MEDS ORDERED: NALOXONE 0.4 MG/ML VIAL IVP PRN (09:13)
[2022-10-30] MEDS ORDERED: ATROPINE ABBOJECT 1 MG/10 ML SYRINGE IVP PRN (09:13)
[2022-10-30] MEDS ORDERED: MORPHINE 2 MG/ML CARPUJECT IVP PRN (09:13)
[2022-10-30] MEDS ORDERED: METOCLOPRAMIDE 10 MG/2 ML VIAL IVP PRN (09:13)
[2022-10-30] MEDS ORDERED: HYDROmorphone 0.5 MG/0.5 ML SYRINGE IVP PRN (09:13)
--- NOTE | 2022-10-30 09:13 | ANESTHESIA ---
Pre-Anesthesia VS, & Labs - Diagnosis invasive ductal carcinoma - Procedure L breast lumpectomy Vital Signs: Temp Pulse Resp BP Pulse Ox O2 Flow Rate 36.3 C L 85 18 103/61 99 10/30/22 08:52 10/30/22 08:52 10/30/22 08:52 10/30/22 08:52 10/30/22 08:52 Height: 5 ft 7 in Weight (kg): 61 kg Body Mass Index: 21.0 BMI Classification: Normal - NPO >8 hours - Is Patient ?: No - Lab Results Lab results reviewed: Yes Home Medications and Allergies Cholecalciferol (Vitamin D3) [Vitamin D] 2,000 unit PO DAILY 07/15/13 Calcium & Magnesium Carbonate [Antacid Gelatin Caplet] 1 each PO DAILY 08/19/13 Vitamin A 8,000 unit PO DAILY 11/18/13 Atorvastatin [Lipitor] 10 mg PO DAILY 11/28/18 Anastrozole 1 mg PO DAILY 09/20/22 Allergies/Adverse Reactions: Allergies Allergy/AdvReac Type Severity Reaction Status Date / Time tamoxifen AdvReac joint pain Verified 10/30/22 09:05 Anes History & Medical History - Anesthetic History Anesthesia Complications: reports: No previous complications Family history of Anesthesia Complications: Denies Family history of Malignant Hyperthermia: Denies - Medical History Cardiovascular: reports: High cholesterol Pulmonary: reports: None Gastrointestinal: reports: Hemorrhoids Urinary: reports: None Neuro: reports: None Musculoskeletal: reports: None Endocrine/Autoimmune: reports: None Blood Disorders: reports: None Skin: reports: None Smoking Status: Never smoker - Surgical History Eyes Ears Nose Throat (EENT): reports: Tonsil/Adenoidectomy Gynecologic: reports: Mastectomy, 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 Exam General: Alert, Oriented x3, Cooperative Dental: WNL Mouth Openin Fingerbreadth Neck Mobility: Normal Mallampati classification: II Thyromental Distance: 4-6 cm Respiratory: Lungs clear, Normal breath sounds, No respiratory distress Cardiovascular: Regular rate Neurological: Normal speech Mental/Cognitive Status: Alert/Oriented X3, Normal for patient Cognitive Status: Within normal limits Plan Anesthesia Type: General Consent for Procedure(s) Verified and Reviewed: Yes Code Status: Attempt Resuscitation ASA classification: 2-Mild systemic disease Is this case an emergency?: No
[2022-10-30] MEDS ORDERED: MIDAZOLAM 2 MG/2 ML VIAL ONE (09:14)
[2022-10-30] MEDS ORDERED: fentaNYL 100 MCG/2 ML VIAL ONE (09:14)
[2022-10-30] MEDS ORDERED: SCOPOLAMINE PATCH TOP ONE (09:25)
[2022-10-30] MEDS ORDERED: DEXAMETHASONE 4 MG/ML VIAL ONE (09:51)
[2022-10-30] MEDS ORDERED: ONDANSETRON 4 MG/2 ML VIAL ONE (09:51)
[2022-10-30] MEDS ORDERED: SCOPOLAMINE PATCH TOP SCH (10:00)
[2022-10-30] MEDS ORDERED: LACTATED RINGERS 1,000 ML IV SCH (10:00)
[2022-10-30] MEDS ORDERED: BUPIVACAINE 0.5% PF 30 ML VIAL SUBQ ONE ×2 (10:02)
[2022-10-30] MEDS ORDERED: LIDOCAINE MPF 2%-EPI 1:200000 20 ML VIAL SUBQ ONE ×2 (10:02)
[2022-10-30] MEDS ORDERED: KETOROLAC 30 MG/ML VIAL ONE (11:02)
[2022-10-30] MEDS ORDERED: oxyCODONE 5 MG TABLET PO PRN (11:07)
--- NOTE | 2022-10-30 11:13 | OPERATIVE REPORT ---
Operative Report - General Procedure Date: 10/30/22 Planned Procedure: left breast lumpectomy Pre-Op Diagnosis: left breast IDC (second primary) Procedure Performed: left breast lumpectomy, axillary tail Post Op Diagnosis: left breast IDC (second primary) - Procedure Note Primary Surgeon: Dr. Myra Phipps Anesthesia Provider: Tay Amaya CRNA Anesthesia Technique: General LMA, Local Pathology: left breast mass, biopsy proven IDC, short superior, long medial, double anterior Estimated Blood Loss (mL): 10 Indications: The patient Has a history of invasive ductal carcinoma of the left breast. Genetic work-up was negative, however the patient has multiple family members with a history of breast cancer. The patient underwent bilateral mastectomies with implant reconstruction. Approximately a year and a half ago, the patient first felt a mass in her left axilla. Initial imaging was reassuring, but repeat imaging was concerning for malignancy. Biopsy of the area proved invasive ductal carcinoma. The tumor markers were different from her first cancer, and this is felt to be a second primary. She was seen in the clinic where we discussed the risks, benefits, and alternatives of lumpectomy. As the patient's previously had a mastectomy, sentinel lymph node biopsy is not possible. Risks include bleeding, infection, damage to surrounding structures causing weakness or numbness, lymphadenopathy, and positive margins. The pat ient voiced understanding, her questions were answered, and she wished to proceed. A consent was signed by the patient in clinic. Of note, the patient did undergo a metastatic work-up which revealed a lesion in her lung that was benign on biopsy. Her bone scan was negative. Findings: 1.2 x 2 x 1 cm mass, densely adherent to surrounding muscle tissue 2.Good contraction of muscle on all edges after resection Complications: None - Other Other Information/Narrative: The patient was taken to the operating room and placed in the supine position. Preop antibiotics were given. ERAS medications were given. The patient was prepped and draped in the usual sterile fashion. A preop surgical timeout was performed. Attention was turned to the patient's left breast, in the axillary tail. An incision was made which incorporated the patient's previous axillary incision. Skin flaps were raised superiorly and inferiorly to the incision. The dissection was carried circumferentially around the palpable mass using Pino-Cut scissors. The mass was noted to be densely adherent to surrounding muscle tissue circumferentially. I attempted to remove as little normal tissue as possible while still completely excising the mass. The lumpectomy specimen was removed and oriented with suture on the back table. The specimen was sent to mammography and the biopsy clip was confirmed to be within the specimen.The edges of the lumpectomy cavity were inspected and there were no palpable abnormalities. Hemostasis was confirmed. During this process, muscle in all areas was contractile. The lumpectomy cavity was irrigated with warm normal saline. The deep dermal tissues were closed with 3-0 Vicryl in an interrupted fashion. The skin was closed with 4-0 Monocryl in a running subcuticular fashion. The patient tolerated the procedure well. There were no complications.
--- NOTE | 2022-10-30 11:43 | ANESTHESIA POST OP EVALUATION ---
Anesthesia Post Eval - Post Anesthesia Eval Vitals: Last Vital Signs Temp 36.2 C L 10/30/22 11:40 Pulse 76 10/30/22 11:40 Resp 14 10/30/22 11:40 BP 110/80 10/30/22 11:40 Pulse Ox 96 10/30/22 11:40 O2 Flow Rate CV Function Including HR & BP: Stable Pain Control: Satisfactory Nausea & Vomiting: Negative Mental Status: Baseline Respiratory Status: Airway Patent Hydration Status: Satisfactory Anesthesia Complications: None
[2022-10-30] MEDS ORDERED: IBUPROFEN 600 MG TABLET PO SCH (12:00)
[2022-10-30 12:17] VITALS: BP 110/79
[2022-10-30] MEDS ORDERED: ACETAMINOPHEN 500 MG TABLET PO PRN (13:00)
--- NOTE | 2022-11-01 10:34 | Mammography Report ---
SPECIMEN: 10/30/2022 CLINICAL: Left breast specimen. Comparison: biopsy ultrasound 09/05/22 Specimen includes the clip. IMPRESSION: SPECIMEN Specimen includes the clip. This exam was interpreted at Station ID: [id number]. Luis Mendez M.D. lc/:10/30/2022 12:33:22 BI-RADS CATEGORY: () - Unspecified - other recall n/a LATERALITY: (B)
== END 2022-10-30 08:47 | disposition home or self-care (01) ==
LOC: SDS 08:46
PROVIDERS: ATTEND Surgery
PROC: 0HBU0ZZ Excision of Left Breast, Open Approach (ICD-10-PCS; principal; 2022-10-30 10:00)
DX: C50.612 Malignant neoplasm of axillary tail of left female breast (principal); Z17.0 Estrogen receptor positive status [ER+]; Z90.13 Acquired absence of bilateral breasts and nipples; Z80.3 Family history of malignant neoplasm of breast
CPT/HCPCS: 19301; 76098; A9270; J3490; J7120

== ENCOUNTER 2023-01-01 23:50 | Inpatient (IN) | payer OTHER ==
[2023-01-02] MEDS ORDERED: SODIUM CHLORIDE 0.9% 1,000 ML IV STA (00:46)
[2023-01-02 00:51] LABS: BASOPHILS % (AUTO) 4.9 %; EOSINOPHILS % (AUTO) 2.4 %; HCT - HEMATOCRIT 32.1 % (37.0-47.0); HGB - HEMOGLOBIN 10.6 g/dL (12.0-16.0); LYMPHOCYTES % (AUTO) 85.4 %; MEAN CORPUSCULAR HEMOGLOBIN 30.4 pg (27.0-31.0); MEAN PLATELET VOLUME 10.5 fL (7.9-10.8); MONOCYTES % (AUTO) 4.9 %; NEUTROPHILS % (AUTO) 2.4 %; PLT - PLATELET COUNT 145 10^3/uL (130-450); RED BLOOD COUNT 3.49 10^6/uL (4.20-5.40); RED CELL DISTRIBUTION WIDTH 12.6 % (12.0-15.0)
[2023-01-02 00:55] LABS: ALBUMIN 4.1 g/dL (3.2-5.5); ALBUMIN/GLOBULIN RATIO 1.8 (1.0-2.2); ALKALINE PHOSPHATASE 90 IU/L (42-121); ALT ALANINE AMINOTRANSFERASE 76 IU/L (10-60); AST ASPARTATE AMINOTRANSFERASE 24 IU/L (10-42); BILIRUBIN,TOTAL 0.3 mg/dL (0.2-1.0); BUN - BLOOD UREA NITROGEN 26 mg/dL (6-20); CALCIUM 9.4 mg/dL (8.5-10.3); CARBON DIOXIDE - CO2 28 mmol/L (21-32); CHLORIDE 97 mmol/L (101-111); CK- CREATINE KINASE < 10 IU/L (30-223); CREATININE 0.8 mg/dL (0.6-1.3); GFR - MDRD 74 (>89); GLUCOSE 105 mg/dL (74-104); LIPASE 30 U/L (11-82); MAGNESIUM 1.6 mg/dL (1.7-2.3); POTASSIUM 3.9 mmol/L (3.5-4.5); SODIUM 134 mmol/L (135-145); TOTAL PROTEIN 6.4 g/dL (6.4-8.9)
[2023-01-02 00:56] LABS: WHITE BLOOD COUNT 0.4 x10^3/uL (4.8-10.8)
[2023-01-02 00:59] LABS: BILIRUBIN,URINE NEGATIVE (NEGATIVE); GLUCOSE, URINE (UA) NEGATIVE (NEGATIVE); KETONES,URINE (UA) NEGATIVE (NEGATIVE); LEUKOCYTE ESTERASE, URINE NEGATIVE (NEGATIVE); NITRITE,URINE NEGATIVE (NEGATIVE); OCCULT BLOOD,URINE NEGATIVE (NEGATIVE); PROTEIN,URINE NEGATIVE (NEGATIVE); UROBILINOGEN,URINE 0.2 (NORMAL) E.U./dL (NORMAL)
[2023-01-02 01:06] LABS: CLARITY,URINE CLEAR (CLEAR); VBG BASE EXCESS 4.7 mmol/L (-2 - +2); VBG HCO3 28.6 mmol/L (23-28); VBG PCO2 39.9 mmHg (41-51); VBG PH 7.473 (7.31-7.41); VBG PO2 37.7 mmHg (25-47); VBG TOTAL CO2 29.8 mmol/L (24-29)
[2023-01-02 01:07] LABS: VBG OXYGEN SATURATION 76.7 % (60-80)
[2023-01-02 01:08] LABS: INR 1.1 (0.8-1.2); PT - PROTHROMBIN TIME 11.9 secs (9.9-12.6)
[2023-01-02] MEDS ORDERED: LORazepam 2 MG/ML VIAL IVP STA (01:09)
[2023-01-02 01:11] LABS: ABNORMAL LYMPHS % (MANUAL) 0 %; BAND NEUTROPHILS % (MANUAL) 0 %
[2023-01-02 01:25] LABS: BASOPHILS % (MANUAL) 2 %; DIFFERENTIAL COMMENT MANUAL DIFFERENTIAL; LYMPHOCYTES # (MANUAL) 0.4 10^3/uL (1.5-3.5); LYMPHOCYTES % (MANUAL) 92 %; PLATELET ESTIMATE, MANUAL NORMAL (130-450,000) (NORMAL); RBC MORPHOLOGY (MULTIPLE) NORMAL APPEARANCE (NORMAL)
[2023-01-02 01:50] LABS: B. PARAPERTUSSIS- RESP PCR PAN NOT DETECTED; B. PERTUSSIS- RESP PCR PANEL NOT DETECTED; C. PNEUMONIAE- RESP PCR PANEL NOT DETECTED; CORONAVIRUS 229E-RESP PCR NOT DETECTED; CORONAVIRUS HKU1-RESP PCR NOT DETECTED; CORONAVIRUS NL63-RESP PCR NOT DETECTED; CORONAVIRUS OC43-RESP PCR NOT DETECTED; HUMAN METAPNEUMOVIRUS NOT DETECTED; INFLUENZA A- RESP PCR PANEL NOT DETECTED; INFLUENZA B - RESP PCR PANEL NOT DETECTED; M. PNEUMONIAE- RESP PCR PANEL NOT DETECTED; PARAINFLUENZA VIRUS 1 NOT DETECTED; PARAINFLUENZA VIRUS 2 NOT DETECTED; PARAINFLUENZA VIRUS 3 NOT DETECTED; PARAINFLUENZA VIRUS 4 NOT DETECTED; RHINOVIRUS/ENTEROVIRUS NOT DETECTED; RSV- RESP PCR PANEL NOT DETECTED; SARS-CoV-2 -RESP PCR PANEL NOT DETECTED
[2023-01-02] MEDS ORDERED: CEFEPIME 2 GM in SODIUM CHLORIDE 0.9% MINIBAG 100 ML IV STA (01:55)
--- NOTE | 2023-01-02 01:58 | ED Physician Documentation ---
History of Present Illness - Stated complaint Stated Complaint: FEVER - Chief complaint Chief Complaint: Fever - Additonal information Additional information: Patient is 57-year-old female presenting to the emergency department with nausea, vomiting, inability to tolerate p.o. intake and fever. Past medical significant for invasive ductal carcinoma of breast, currently on chemotherapeutic agents Taxotex/Cytoxen. Last infusion 1 week ago. Has been having increasing nausea vomiting for several weeks however today became particularly pernicious with a total inability to tolerate any p.o. food or fluids. Today had fever at home 101.0. They contacted their oncology nurse and were instructed to come to the emergency department. She reports feeling generally weak and nauseous but denies any chest pain, cough, congestion, shortness of breath, abdominal pain, new rash. 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, 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 HEENT: Tonsil/Adenoidectomy - Present Medications Home Medications: Ambulatory Orders Medication Instructions Recorded Confirmed Cholecalciferol (Vitamin D3) 2,000 unit PO DAILY 07/15/13 12/19/22 [Vitamin D] Calcium & Magnesium Carbonate 1 each PO DAILY 08/19/13 12/19/22 [Antacid Gelatin Caplet] Atorvastatin [Lipitor] 10 mg PO DAILY 11/28/18 12/19/22 Anastrozole 1 mg PO DAILY 09/20/22 12/19/22 LORazepam [Ativan] 1 mg PO Q6HR PRN 12/08/22 12/19/22 Lidocaine/Prilocain 2.5% Cream 5 gm TOP PRN 12/08/22 [Emla 2.5% Cream] Prochlorperazine Maleate 10 mg PO Q6HR PRN 12/08/22 12/19/22 [Compazine] OLANZapine [Olanzapine] 10 mg PO HS PRN 12/15/22 12/19/22 - Allergies Allergies/Adverse Reactions: Allergies Allergy/AdvReac Type Severity Reaction Status Date / Time tamoxifen AdvReac joint pain Verified 10/30/22 09:05 - Social History Does the pt smoke?: No Smoking Status: Never smoker Does the pt drink ETOH?: No Does the pt have substance abuse?: No - POLST Patient has POLST: No PD ED PE NORMAL - Vitals Vital signs reviewed: Yes (Patient tachycardic) - General General: Alert and oriented X 3, Other (Ill-appearing) - HEENT HEENT: Atraumatic, PERRL, EOMI, Ears normal. No: Moist mucous membranes (Dry mucous membranes), Pharynx benign - Neck Neck: No: Supple, no meningeal sign - Cardiac Cardiac: RRR, No gallop, Other (Tachycardic) - Respiratory Respiratory: Clear bilaterally - Abdomen Abdomen: Normal bowel sounds - Female Female : Deferred - Rectal Rectal: Deferred - Derm Derm: Other (Pale) - Extremities Extremities: No deformity - Neuro Neuro: Alert and oriented X 3, legal aid 2-12 intact, No motor deficit - Psych Psych: Normal mood Results - Vitals Vitals: Vital Signs - 24 hr 01/01/23 01/02/23 01/02/23 23:55 00:50 01:45 Temperature 37.3 C 37.7 C 99.5 C H Heart Rate 126 H 89 72 Respiratory 16 20 20 Rate Blood Pressure 106/70 125/74 124/75 O2 Saturation 98 96 100 Oxygen O2 Source Room air - EKG (time done) 0022 EKG releavant findings:: EKG personally interpreted by author of this note. Relevant findings are: Sinus rhythm with rate 97 bpm. Normal axis. Normal IA, QRS, QTc intervals. No ST segment elevations or T wave inversions. - Labs Labs: Laboratory Tests 01/02/23 01/02/23 01/02/23 00:27 00:27 00:27 WBC 0.4 L* RBC 3.49 L Hgb 10.6 L Hct 32.1 L MCV 92.0 MCH 30.4 MCHC 33.0 RDW 12.6 Plt Count 145 MPV 10.5 Neut # (Auto) Not Reportable Lymph # (Auto) Not Reportable [place] # (Auto) Not Reportable Eos # (Auto) Not Reportable Baso # (Auto) Not Reportable Absolute Nucleated RBC Not Reportable Total Counted 50 Band Neuts % (Manual) 0 Abnorm Lymph % (Manual) 0 Nucleated RBC % Not Reportable Neutrophils # (Manual) 0.0 L* Lymphocytes # (Manual) 0.4 L Monocytes # (Manual) 0.0 Eosinophils # (Manual) 0.0 Basophils # (Manual) 0.0 Differential Comment MANUAL DIFFERENTIAL Platelet Estimate NORMAL (130-450,000) RBC Morph Micro Appear NORMAL APPEARANCE PT 11.9 INR 1.1 VBG pH VBG pCO2 VBG pO2 VBG HCO3 VBG Total CO2 VBG O2 Saturation VBG Base Excess Sodium 134 L Potassium 3.9 Chloride 97 L Carbon Dioxide 28 Anion Gap 9.0 BUN 26 H Creatinine 0.8 Estimated GFR (MDRD) 74 L Glucose 105 H Lactic Acid Calcium 9.4 Magnesium 1.6 L Total Bilirubin 0.3 AST 24 ALT 76 H Alkaline Phosphatase 90 Total Creatine Kinase < 10 L Total Protein 6.4 Albumin 4.1 Globulin 2.3 Albumin/Globulin Ratio 1.8 Lipase 30 Urine Color Urine Clarity Urine pH Ur Specific [place] Urine Protein Urine Glucose (UA) Urine Ketones Urine Occult Blood Urine Nitrite Urine Bilirubin Urine Urobilinogen Ur Leukocyte Esterase Ur Microscopic Review Urine Culture Comments Nasal Adenovirus (PCR) Nasal B. parapertussis DNA (PCR) Nasal Coronavir 229E PCR Nasal Coronavir HKU1 PCR Nasal Coronavir NL63 PCR Nasal Coronavir OC43 PCR Nasal Enterovir/Rhinovir PCR Nasal Influenza B PCR Nasal Influenza A PCR Nasal Parainfluen 1 PCR Nasal Parainfluen 2 PCR Nasal Parainfluen 3 PCR Nasal Parainfluen 4 PCR Nasal RSV (PCR) Nasal B.pertussis DNA PCR Nasal C.pneumoniae (PCR) [place] Human Metapneumo PCR Nasal M.pneumoniae (PCR) Nasal SARS-CoV-2 (PCR) 01/02/23 01/02/23 01/02/23 00:27 00:27 00:27 WBC RBC Hgb Hct MCV MCH MCHC RDW Plt Count MPV Neut # (Auto) Lymph # (Auto) [place] # (Auto) Eos # (Auto) Baso # (Auto) Absolute Nucleated RBC Total Counted Band Neuts % (Manual) Abnorm Lymph % (Manual) Nucleated RBC % Neutrophils # (Manual) Lymphocytes # (Manual) Monocytes # (Manual) Eosinophils # (Manual) Basophils # (Manual) Differential Comment Platelet Estimate RBC Morph Micro Appear PT INR VBG pH 7.473 H VBG pCO2 39.9 L VBG pO2 37.7 VBG HCO3 28.6 H VBG Total CO2 29.8 H VBG O2 Saturation 76.7 VBG Base Excess 4.7 H Sodium Potassium Chloride Carbon Dioxide Anion Gap BUN Creatinine Estimated GFR (MDRD) Glucose Lactic Acid 1.6 Calcium Magnesium Total Bilirubin AST ALT Alkaline Phosphatase Total Creatine Kinase Total Protein Albumin Globulin Albumin/Globulin Ratio Lipase Urine Color YELLOW Urine Clarity CLEAR Urine pH 7.0 Ur Specific [place] 1.020 Urine Protein NEGATIVE Urine Glucose (UA) NEGATIVE Urine Ketones NEGATIVE Urine Occult Blood NEGATIVE Urine Nitrite NEGATIVE Urine Bilirubin NEGATIVE Urine Urobilinogen 0.2 (NORMAL) Ur Leukocyte Esterase NEGATIVE Ur Microscopic Review NOT INDICATED Urine Culture Comments NOT INDICATED Nasal Adenovirus (PCR) Nasal B. parapertussis DNA (PCR) Nasal Coronavir 229E PCR Nasal Coronavir HKU1 PCR Nasal Coronavir NL63 PCR Nasal Coronavir OC43 PCR Nasal Enterovir/Rhinovir PCR Nasal Influenza B PCR Nasal Influenza A PCR Nasal Parainfluen 1 PCR Nasal Parainfluen 2 PCR Nasal Parainfluen 3 PCR Nasal Parainfluen 4 PCR Nasal RSV (PCR) Nasal B.pertussis DNA PCR Nasal C.pneumoniae (PCR) [place] Human Metapneumo PCR Nasal M.pneumoniae (PCR) Nasal SARS-CoV-2 (PCR) 01/02/23 00:27 WBC RBC Hgb Hct MCV MCH MCHC RDW Plt Count MPV Neut # (Auto) Lymph # (Auto) [place] # (Auto) Eos # (Auto) Baso # (Auto) Absolute Nucleated RBC Total Counted Band Neuts % (Manual) Abnorm Lymph % (Manual) Nucleated RBC % Neutrophils # (Manual) Lymphocytes # (Manual) Monocytes # (Manual) Eosinophils # (Manual) Basophils # (Manual) Differential Comment Platelet Estimate RBC Morph Micro Appear PT INR VBG pH VBG pCO2 VBG pO2 VBG HCO3 VBG Total CO2 VBG O2 Saturation VBG Base Excess Sodium Potassium Chloride Carbon Dioxide Anion Gap BUN Creatinine Estimated GFR (MDRD) Glucose Lactic Acid Calcium Magnesium Total Bilirubin AST ALT Alkaline Phosphatase Total Creatine Kinase Total Protein Albumin Globulin Albumin/Globulin Ratio Lipase Urine Color Urine Clarity Urine pH Ur Specific [place] Urine Protein Urine Glucose (UA) Urine Ketones Urine Occult Blood Urine Nitrite Urine Bilirubin Urine Urobilinogen Ur Leukocyte Esterase Ur Microscopic Review Urine Culture Comments Nasal Adenovirus (PCR) NOT DETECTED Nasal B. parapertussis DNA (PCR) NOT DETECTED Nasal Coronavir 229E PCR NOT DETECTED Nasal Coronavir HKU1 PCR NOT DETECTED Nasal Coronavir NL63 PCR NOT DETECTED Nasal Coronavir OC43 PCR NOT DETECTED Nasal Enterovir/Rhinovir PCR NOT DETECTED Nasal Influenza B PCR NOT DETECTED Nasal Influenza A PCR NOT DETECTED Nasal Parainfluen 1 PCR NOT DETECTED Nasal Parainfluen 2 PCR NOT DETECTED Nasal Parainfluen 3 PCR NOT DETECTED Nasal Parainfluen 4 PCR NOT DETECTED Nasal RSV (PCR) NOT DETECTED Nasal B.pertussis DNA PCR NOT DETECTED Nasal C.pneumoniae (PCR) NOT DETECTED [place] Human Metapneumo PCR NOT DETECTED Nasal M.pneumoniae (PCR) NOT DETECTED Nasal SARS-CoV-2 (PCR) NOT DETECTED PD Medical Decision Making - ED course Complexity details: reviewed results, re-evaluated patient, considered differential, d/w patient, d/w family ED course: Patient 57-year-old female currently receiving chemotherapy for invasive ductal carcinoma of breast presenting to the emergency department with report of fever 101 at home as well as nausea, vomiting, inability to tolerate p.o. intake. Arrives tachycardic, somewhat pale and ill-appearing but otherwise hemodynamically stable. Clear aeration in all lung chang, soft benign abdominal exam. Labs significant for severe leukopenia with neutropenia. IV fluids, lorazepam provided at patient's request as she stated that this helps her with her nausea. Additionally given her reported history of fever as well as her severe neutropenia dose cefepime given, blood cultures pending. Discussed with the telemetry hospitalist service who graciously agreed to hospitalize for further evaluation and treatment. Departure - Departure Disposition: [facility] DC/Xfer Clinical Impression: Neutropenia Qualifiers: Neutropenia type: other Qualified Code(s): D70.8 - Other neutropenia Fever Qualifiers: Fever type: unspecified Qualified Code(s): R50.9 - Fever, unspecified Ductal carcinoma of breast Qualifiers: Laterality: unspecified laterality Qualified Code(s): C50.919 - Malignant neop lasm of unspecified site of unspecified female breast Nausea and vomiting Qualifiers: Vomiting type: unspecified Qualified Code(s): R11.2 - Nausea with vomiting, unspecified
[2023-01-02] MEDS ORDERED: ONDANSETRON ODT 4 MG TABLET TL PRN (03:13)
[2023-01-02] MEDS ORDERED: ONDANSETRON 4 MG/2 ML VIAL IVP PRN (03:13)
[2023-01-02] MEDS ORDERED: LORazepam 1 MG TABLET PO PRN (03:18)
[2023-01-02] MEDS: SODIUM CHLORIDE 0.9% 1,000 ML IV SCH ×2 (03:29→15:47)
--- NOTE | 2023-01-02 03:34 | HISTORY & PHYSICAL EXAMINATION ---
Chief Complaint - Chief Complaint Chief Complaint: Fever History of Present Illness - Admitted From Admitted From:: ER - History Obtained From Records Reviewed: Yes History obtained from: Patient, staff, chart Exam Limitations: Virtual exam - History of Present Illness HPI Comment/Other: H&P was conducted via video remotely, using Access Cart. Patient is in [place]. Physician is in [place]. No one is at bedside. 57 yo F with PMH of HLD, Anxiety, L Breast Invasive Ductal Carcinoma T1b G2, ER positive s/p B/L Mastectomies on Chemotherapy with Taxotex/Cytoxen presented to the ER with c/o 1 day h/o Fever, 3 week h/o N/V. Pt started Chemotherapy 3 weeks ago; she had her last infusion 1 week ago. Since she started 3 weeks ago, she has had persistent Nausea with vomiting, non-bloody. She has been unable to tolerate PO fluids, food. No abdo pain, no diarrhea. Today, around 11PM, she developed subjective F/C. She checked her temperature and it was 101F, so she came to the ER. No CP/SOB/cough/coryza. No dysuria. In the ER, T99.5F, HR 126, WBC 0.4, Hgb 10.6, Na 134, Mg 1.6, BC pending. CXR: pending. Pt was given Cefepime and Lorazaepam (for nausea) in the ER. 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 HEENT: reports: Tonsil/Adenoidectomy - POLST Patient has POLST: No Meds/Allgy - Home Medications Home Medications: Ambulatory Orders Medication Instructions Recorded Confirmed Cholecalciferol (Vitamin D3) 2,000 unit PO DAILY 07/15/13 12/19/22 [Vitamin D] Calcium & Magnesium Carbonate 1 each PO DAILY 08/19/13 12/19/22 [Antacid Gelatin Caplet] Atorvastatin [Lipitor] 10 mg PO DAILY 11/28/18 12/19/22 Anastrozole 1 mg PO DAILY 09/20/22 12/19/22 LORazepam [Ativan] 1 mg PO Q6HR PRN 12/08/22 12/19/22 Lidocaine/Prilocain 2.5% Cream 5 gm TOP PRN 12/08/22 [Emla 2.5% Cream] Prochlorperazine Maleate 10 mg PO Q6HR PRN 12/08/22 12/19/22 [Compazine] OLANZapine [Olanzapine] 10 mg PO HS PRN 12/15/22 12/19/22 - Allergies Allergies/Adverse Reactions: Allergies Allergy/AdvReac Type Severity Reaction Status Date / Time tamoxifen AdvReac joint pain Verified 10/30/22 09:05 Review of Systems - All Other Systems All Other Systems: reports: Reviewed and negative Exam - Vital Signs Reviewed Vital Signs: Yes Vital Signs: Vital Signs x48h Temp Pulse Resp BP Pulse Ox 01/02/23 01:45 99.5 C H 72 20 124/75 100 01/02/23 00:50 37.7 C 89 20 125/74 96 01/01/23 23:55 37.3 C 126 H 16 106/70 98 - Physical Exam General Appearance: positive: No acute distress Eyes Bilateral: positive: EOMI, No scleral icterus ENT: positive: Dry mucous membranes Respiratory: positive: Other (Access cart stethoscope not working; per ER Provider: CTA B/L) Cardiovascular: positive: Other (Access cart stethoscope not working; per ER Provider: RR, Tachy, no murmurs) Abdomen: positive: Other (per ER Provider: non-distended, NT, Soft) Extremities: positive: Full ROM, No pedal edema Neurologic/Psychiatric: positive: Oriented x3, CN's nml (2-12), Mood/affect nml Conclusion/Plan - Problem List (1) Neutropenic fever Conclusion/Plan: Neutropenic Fever L Breast Invasive Ductal Carcinoma T1b G2, ER positive s/p B/L Mastectomies, on Chemotherapy with Taxotex/Cytoxen Anemia Nausea/Vomiting Tachycardia Hyponatremia Low Magnesium -T99.5F, HR 126, WBC 0.4, Hgb 10.6, Na 134, Mg 1.6, BC pending. -CXR: pending. -Pt was given Cefepime and Lorazaepam (for nausea) in the ER. -admit to Med Tele -IVF, anti-emetics -clear liquid diet; advance as tolerated -supplement Mg PRN -F/U on CXR, BC results -continue Cefepime -continue F/U with Oncologist HLD -continue home medications: statin Anxiety -continue home medications: Olanzapine, PRN Ativan VTE Prophylaxis: Hep SQ Code Status: Full Code ~Verna Santiago MD Hospitalist - Lab Results Fish Bones: 01/02/23 00:27 01/02/23 00:27
[2023-01-02] MEDS ORDERED: PROCHLORPERAZINE 5 MG TABLET PO PRN (03:35)
[2023-01-02] MEDS: ACETAMINOPHEN 325 MG TABLET PO PRN ×2 (06:02→17:17)
[2023-01-02] MEDS: SODIUM CHLORIDE FLUSH 0.9% 10 ML SYRINGE IVP SCH ×2 (06:04→15:47)
--- NOTE | 2023-01-02 07:49 | XRAY Report ---
PROCEDURE: Chest 1 View X-Ray INDICATIONS: chest pain TECHNIQUE: One view of the chest was acquired. COMPARISON: Chest x-ray, 12/11/2022. Chest CT, 10/10/2022. FINDINGS: Surgical changes and devices: There is a Port-A-Cath in the right anterior chest with the tip in the area of SVC. Lungs and pleura: There is 5 cm mass in the left lower lung zone. There is mild infiltrate in the lef t lower lung zone. No focal consolidationNo pleural effusions or pneumothorax. Mediastinum: Mediastinal contours appear normal. Heart size is normal. Bones and chest wall: No suspicious bony lesions. Overlying soft tissues appear unremarkable. IMPRESSION: 1. A 5 cm mass density in the left lower lung zone with associated infiltrate. Findings are concordant with preliminary interpretation provided by [facility]. Reviewed by: Edy Rey MD on 01/02/2023 7:48 AM PDT Approved by: Edy Rey MD on 01/02/2023 7:48 AM PDT Station ID: [id number]
[2023-01-02 08:36] LABS: BASOPHILS % (AUTO) 3.2 %; EOSINOPHILS % (AUTO) 3.2 %; HCT - HEMATOCRIT 27.8 % (37.0-47.0); HGB - HEMOGLOBIN 9.1 g/dL (12.0-16.0); LYMPHOCYTES % (AUTO) 80.6 %; MEAN CORPUSCULAR HGB CONC 32.7 g/dL (32.0-36.0); MEAN CORPUSCULAR VOLUME 91.7 fL (81.0-99.0); MEAN PLATELET VOLUME 10.2 fL (7.9-10.8); MONOCYTES % (AUTO) 6.5 %; NEUTROPHILS % (AUTO) 6.5 %; PLT - PLATELET COUNT 131 10^3/uL (130-450); RED BLOOD COUNT 3.03 10^6/uL (4.20-5.40); RED CELL DISTRIBUTION WIDTH 12.5 % (12.0-15.0)
[2023-01-02 08:40] LABS: WHITE BLOOD COUNT 0.3 x10^3/uL (4.8-10.8)
[2023-01-02 08:41] LABS: ABNORMAL LYMPHS % (MANUAL) 0 %; BAND NEUTROPHILS % (MANUAL) 0 %
[2023-01-02 08:48] LABS: CALCIUM 8.8 mg/dL (8.5-10.3); CREATININE 0.6 mg/dL (0.6-1.3); MAGNESIUM 1.5 mg/dL (1.7-2.3); PHOSPHORUS 3.9 mg/dL (2.5-5.0); POTASSIUM 4.2 mmol/L (3.5-4.5)
[2023-01-02] MEDS ORDERED: MAGNESIUM CARBONATE PO SCH (09:00)
[2023-01-02] MEDS ORDERED: [UNRECOGNIZED DRUG - OTHER] PO SCH (09:00)
[2023-01-02] MEDS ORDERED: LIDOCAINE/PRILOCAINE 2.5% CREAM 5 GM TUBE TOP SCH (09:00)
[2023-01-02] MEDS ORDERED: ATORVASTATIN 10 MG TABLET PO SCH (09:00)
[2023-01-02] MEDS ORDERED: CALCIUM PO SCH (09:00)
[2023-01-02] MEDS ORDERED: MAGNESIUM SULFATE 1 GM in SODIUM CHLORIDE 0.9% 50 ML IV ONE (09:04)
[2023-01-02 09:17] LABS: BASOPHILS % (MANUAL) 2 %; DIFFERENTIAL COMMENT MANUAL DIFFERENTIAL; LYMPHOCYTES # (MANUAL) 0.2 10^3/uL (1.5-3.5); LYMPHOCYTES % (MANUAL) 76 %; PLATELET ESTIMATE, MANUAL NORMAL (130-450,000) (NORMAL); PLATELET MORPHOLOGY NORMAL APPEARANCE (NORMAL); RBC MORPHOLOGY (MULTIPLE) NORMAL APPEARANCE (NORMAL)
[2023-01-02] MEDS: ANASTROZOLE 1 MG TABLET PO SCH (09:38)
[2023-01-02] MEDS: CHOLECALCIFEROL 25 MCG TABLET PO SCH (09:42)
[2023-01-02] MEDS: ONDANSETRON 4 MG/2 ML VIAL IVP PRN ×2 (09:42→15:47)
[2023-01-02] MEDS: HEPARIN 5,000 UNIT/ML VIAL SUBQ SCH ×2 (09:43→20:00)
[2023-01-02] MEDS: CEFEPIME 2 GM in SODIUM CHLORIDE 0.9% MINIBAG 100 ML IV SCH ×2 (10:37→17:41)
[2023-01-02] MEDS: LORazepam 1 MG TABLET PO PRN ×2 (11:36→20:00)
[2023-01-02] MEDS ORDERED: OLANZapine ODT 5 MG TABLET TL PRN (21:00)
[2023-01-03] MEDS: SODIUM CHLORIDE FLUSH 0.9% 10 ML SYRINGE IVP SCH ×4 (00:59→23:44)
[2023-01-03] MEDS: CEFEPIME 2 GM in SODIUM CHLORIDE 0.9% MINIBAG 100 ML IV SCH ×2 (01:56→09:58)
[2023-01-03] MEDS: SODIUM CHLORIDE 0.9% 1,000 ML IV SCH ×2 (01:56→13:31)
[2023-01-03 05:22] LABS: BASOPHILS % (AUTO) 7.7 %; EOSINOPHILS % (AUTO) 2.6 %; HCT - HEMATOCRIT 27.6 % (37.0-47.0); LYMPHOCYTES % (AUTO) 61.5 %; MEAN CORPUSCULAR HGB CONC 32.6 g/dL (32.0-36.0); MEAN PLATELET VOLUME 10.7 fL (7.9-10.8); MONOCYTES % (AUTO) 17.9 %; NEUTROPHILS % (AUTO) 2.6 %; PLT - PLATELET COUNT 106 10^3/uL (130-450); RED CELL DISTRIBUTION WIDTH 12.4 % (12.0-15.0)
[2023-01-03 05:29] LABS: WHITE BLOOD COUNT 0.4 x10^3/uL (4.8-10.8)
[2023-01-03 05:30] LABS: ABNORMAL LYMPHS % (MANUAL) 0 %; BAND NEUTROPHILS % (MANUAL) 0 %
[2023-01-03 05:37] LABS: CALCIUM 8.9 mg/dL (8.5-10.3); CREATININE 0.6 mg/dL (0.6-1.3); POTASSIUM 3.6 mmol/L (3.5-4.5)
[2023-01-03 05:53] LABS: LYMPHOCYTES # (MANUAL) 0.3 10^3/uL (1.5-3.5); LYMPHOCYTES % (MANUAL) 80 %; METAMYELOCYTES % (MANUAL) 2 %
[2023-01-03 05:54] LABS: DIFFERENTIAL COMMENT MANUAL DIFFERENTIAL; PLATELET ESTIMATE, MANUAL DECREASED (<130,000) (NORMAL); RBC MORPHOLOGY (MULTIPLE) NORMAL APPEARANCE (NORMAL)
[2023-01-03] MEDS: ONDANSETRON 4 MG/2 ML VIAL IVP PRN (06:45)
[2023-01-03] MEDS: LORazepam 1 MG TABLET PO PRN (07:33)
[2023-01-03] MEDS: ACETAMINOPHEN 1,000 MG/100 ML 1,000 MG/100 ML BAG IV PRN ×2 (07:39→16:13)
[2023-01-03] MEDS: ANASTROZOLE 1 MG TABLET PO SCH (07:41)
[2023-01-03] MEDS: CHOLECALCIFEROL 25 MCG TABLET PO SCH (09:23)
[2023-01-03] MEDS: HEPARIN 5,000 UNIT/ML VIAL SUBQ SCH ×3 (09:59→23:18)
--- NOTE | 2023-01-03 12:44 | PROVIDER PROGRESS NOTE ---
Assessment/Plan - Problem List (1) Neutropenic fever Assessment/Plan: No obvious source was found for the fever at admission. The patient was started on IV cefepime. Today I discussed the case with her oncologist Dr. Onelia Garcia ([phone]). Dr. Garcia said that usually neutropenic fevers are given IV meropenem empirically. Patient's total white blood count has gone up from 0.3-0.4 but absolute neutrop hil count is still 0 (all labs were reviewed). When I discussed the case with Dr. Onelia Garcia, asking whether we should give Genex for stimulating blood cells. Dr. Garcia said that the patient got Neulasta, a long-acting agent 1 week ago, when she got her last chemotherapy therefore no other marrow stimulator meds are indicated now Plan: Follow CBC daily Continue with a neutropenic precaution diet Continue with neutropenic isolation I will change her IV cefepime to IV meropenem after discussion w/ Dr. Garcia (2) Nausea and vomiting Qualifiers: Vomiting type: unspecified Qualified Code(s): R11.2 - Nausea with vomiting, unspecified Assessment/Plan: The patient has had nausea and vomiting with negligible oral intake for a week. Zofran iv helps her and the dose has been increased from every 6 hours to every 4 hours as needed. Olanzepin sl did not help her at home. The patient also reports that lorazepam helps which was also ordered as needed for nausea. Plan: We will start pt on peripheral nutrition via IV, discussed with [id number] Software Engineer Eugenia We will continue with antiemetics as needed. Today I added iv Reglan as needed and Compazine prn to try to control nausea The patient is requesting some dry food like saltine crackers which I will allow. I discussed with our patient observer, Eugenia, that the pt can pick and choose some dry foods that hopefully will not be vomited (3) Ductal carcinoma of breast Qualifiers: Laterality: unspecified laterality Qualified Code(s): C50.919 - Malignant neoplasm of unspecified site of unspecified female breast Assessment/Plan: As per history. Patient got chemotherapy 1 week ago Plan: Continue to follow-up with her Oncologist long-term as outpt (4) Hypomagnesemia Assessment/Plan: From inadequate p.o. intake and from losses and vomiting Plan: Replace with IV mag Follow mag level daily - Current Meds Current Meds: Current Medications Generic Name Dose Route Start Last Admin Trade Name Freq PRN Reason Stop Dose Admin Acetaminophen 650 mg 01/02/23 03:13 01/02/23 17:17 Acetaminophen 325 Mg Tablet PO 650 mg Q4HR PRN Administration Pain 1 to 4, or Fever Anastrozole 1 mg 01/02/23 09:00 01/03/23 07:41 Anastrozole 1 Mg Tablet PO Not Given DAILY FRANK Cholecalciferol 50 mcg 01/02/23 09:00 01/03/23 09:23 Cholecalciferol 25 Mcg Tablet PO Not Given DAILY FRANK Heparin Sodium (Porcine) 5,000 unit 01/02/23 09:00 01/03/23 09:59 Heparin 5,000 Unit/Ml Vial SUBQ 5,000 unit BID FRANK Administration Sodium Chloride 1,000 mls @ 100 mls/hr 01/02/23 04:00 01/03/23 10:56 Normal Saline 0.9% IV 100 mls/hr .Q10H FRANK Infusion Acetaminophen 1,000 mg in 100 mls @ 400 mls/hr 01/02/23 19:05 01/03/23 08:12 Acetaminophen IV Infused Q6HR PRN Infusion Pain or Fever > 38C (100.4F) Lorazepam 1 mg 01/02/23 09:07 01/03/23 07:33 Lorazepam 1 Mg Tablet PO 1 mg Q6HR PRN Administration Nausea / Vomiting Ondansetron HCl 4 mg 01/02/23 08:35 01/03/23 06:45 Ondansetron 4 Mg/2 Ml Vial IVP 4 mg Q4HR PRN Administration Nausea / Vomiting Sodium Chloride 10 ml 01/02/23 09:00 01/03/23 09:58 Sodium Chloride Flush 0.9% 10 Ml Syringe IVP 10 ml 0100,0900,1700 FRANK Administration - Lab Result Fish Bone Diagrams: 01/03/23 04:45 01/03/23 04:45 - Additional Planning My Orders: My Active Orders 01/02/23 19:05 Acetaminophen 1,000 mg/100 ml [Acetaminophen] 1,000 mg in 100 ml IV Q6HR 01/02/23 19:24 CULTURE, BLOOD #1 [RM] Stat 01/03/23 08:59 Metoclopramide Inj [Reglan Inj] 5 mg IVP Q6HR PRN 01/03/23 11:05 Daily Weight [RC] DAILY Message to Nursing [RC] QSHIFT 01/03/23 13:00 Meropenem [Merrem] 1 gm Sodium Chloride 0.9% Minibag [Normal Saline 0.9% Minibag] 100 ml IV Q8H 01/03/23 19:00 Fat Emulsion 20% [Intralipid 20%] 250 ml IV 1900 Multivitamin [Infuvite] 10 ml Trace Elements [Tralement Vial] 1 ml Ppn (Clinimix E 4.25/5) [Clinimix E 4.25%-5% Solution] 2,000 ml IV 1900 01/04/23 05:00 BMP - BASIC METABOLIC PANEL [CHEM] DAILYLAB CBC - COMP BLD CT W/AUTO DIFF [HEME] DAILYLAB COMPREHENSIVE METABOLIC PANEL [CHEM] Routine MAGNESIUM [CHEM] Routine PHOSPHORUS [CHEM] Routine PREALBUMIN [CHEM] Routine TRIGLYCERIDES [CHEM] Routine 01/05/23 05:00 BMP - BASIC METABOLIC PANEL [CHEM] DAILYLAB CBC - COMP BLD CT W/AUTO DIFF [HEME] DAILYLAB 01/06/23 05:00 BMP - BASIC METABOLIC PANEL [CHEM] DAILYLAB CBC - COMP BLD CT W/AUTO DIFF [HEME] DAILYLAB COMPREHENSIVE METABOLIC PANEL [CHEM] Routine MAGNESIUM [CHEM] Routine PHOSPHORUS [CHEM] Routine PREALBUMIN [CHEM] Routine TRIGLYCERIDES [CHEM] Routine 01/07/23 05:00 BMP - BASIC METABOLIC PANEL [CHEM] DAILYLAB CBC - COMP BLD CT W/AUTO DIFF [HEME] DAILYLAB 01/08/23 05:00 COMPREHENSIVE METABOLIC PANEL [CHEM] Routine MAGNESIUM [CHEM] Routine PHOSPHORUS [CHEM] Routine PREALBUMIN [CHEM] Routine TRIGLYCERIDES [CHEM] Routine 01/11/23 05:00 COMPREHENSIVE METABOLIC PANEL [CHEM] Routine MAGNESIUM [CHEM] Routine PHOSPHORUS [CHEM] Routine PREALBUMIN [CHEM] Routine TRIGLYCERIDES [CHEM] Routine Subjective - Subjective Patient Reports: Headache (feels worse: incessant nausea, retching, today has a new headache), Nausea Objective Vital Signs: Vital Signs - 24 hr 01/02/23 01/02/23 01/02/23 13:00 15:34 17:15 Temperature 37.2 C 37.7 C 38 C H Heart Rate [ 88 94 Brachial] Respiratory 18 14 Rate Blood Pressure 103/61 113/60 [Right Brachial artery] O2 Saturation 100 98 01/02/23 01/02/23 01/02/23 18:31 19:57 22:49 Temperature 36.7 C 36.6 C 36.4 C L Heart Rate [ 80 79 Brachial] Respiratory 18 18 Rate Blood Pressure 96/57 L 117/74 [Right Brachial artery] O2 Saturation 97 98 01/03/23 08:00 Temperature 36.8 C Heart Rate [ 91 Brachial] Respiratory Rate Blood Pressure 111/72 [Right Brachial artery] O2 Saturation 96 Oxygen O2 Source Room air I&O (Last 24 Hrs): Intake and Output Totals x24h 01/01/23 01/02/23 01/03/23 23:59 23:59 23:59 Intake Total 2742 1833.334 Output Total 200 Balance 2542 1833.334 General: Alert, Oriented x3, Moderate distress (from nausea), Other (appears fatigued) HEENT: EOMI, Other (dry oral mucosa) Neck: Supple, No JVD, Other (port under R clavicle is non-tender or fluctuant) Neuro: Alert Cardiovascular: Regular rate Respiratory: No respiratory distress Abdomen: Soft Extremities: No clubbing, No edema - Results Results: Laboratory Results WBC 0.4 x10^3/uL (4.8-10.8) L* 01/03/23 04:45 RBC 3.00 10^6/uL (4.20-5.40) L 01/03/23 04:45 Hgb 9.0 g/dL (12.0-16.0) L 01/03/23 04:45 Hct 27.6 % (37.0-47.0) L 01/03/23 04:45 MCV 92.0 fL (81.0-99.0) 01/03/23 04:45 MCH 30.0 pg (27.0-31.0) 01/03/23 04:45 MCHC 32.6 g/dL (32.0-36.0) 01/03/23 04:45 RDW 12.4 % (12.0-15.0) 01/03/23 04:45 Plt Count 106 10^3/uL (130-450) L 01/03/23 04:45 MPV 10.7 fL (7.9-10.8) 01/03/23 04:45 Neut # (Auto) Not Reportable 01/03/23 04:45 Lymph # (Auto) Not Reportable 01/03/23 04:45 [place] # (Auto) Not Reportable 01/03/23 04:45 Eos # (Auto) Not Reportable 01/03/23 04:45 Baso # (Auto) Not Reportable 01/03/23 04:45 Absolute Nucleated RBC Not Reportable 01/03/23 04:45 Total Counted 50 01/03/23 04:45 Band Neuts % (Manual) 0 % (0-10) 01/03/23 04:45 Abnorm Lymph % (Manual) 0 % 01/03/23 04:45 Metamyelocytes % 2 % (-0) H 01/03/23 04:45 Nucleated RBC % Not Reportable 01/03/23 04:45 Neutrophils # (Manual) 0.0 10^3/uL (1.5-6.6) L* 01/03/23 04:45 Lymphocytes # (Manual) 0.3 10^3/uL (1.5-3.5) L 01/03/23 04:45 Monocytes # (Manual) 0.0 10^3/uL (0.0-1.0) 01/03/23 04:45 Eosinophils # (Manual) 0.0 10^3/uL (0-0.7) 01/03/23 04:45 Basophils # (Manual) 0.0 10^3/uL (0-0.1) 01/03/23 04:45 Differential Comment MANUAL DIFFERENTIAL 01/03/23 04:45 Platelet Estimate DECREASED (<130,000) (NORMAL) 01/03/23 04:45 Platelet Morphology NORMAL APPEARANCE (NORMAL) 01/02/23 08:27 RBC Morph Micro Appear NORMAL APPEARANCE (NORMAL) 01/03/23 04:45 PT 11.9 secs (9.9-12.6) 01/02/23 00:27 INR 1.1 (0.8-1.2) 01/02/23 00:27 VBG pH 7.473 (7.31-7.41) H 01/02/23 00:27 VBG pCO2 39.9 mmHg (41-51) L 01/02/23 00:27 VBG pO2 37.7 mmHg (25-47) 01/02/23 00:27 VBG HCO3 28.6 mmol/L (23-28) H 01/02/23 00:27 VBG Total CO2 29.8 mmol/L (24-29) H 01/02/23 00:27 VBG O2 Saturation 76.7 % (60-80) 01/02/23 00:27 VBG Base Excess 4.7 mmol/L (-2 - +2) H 01/02/23 00:27 Sodium 134 mmol/L (135-145) L 01/03/23 04:45 Potassium 3.6 mmol/L (3.5-4.5) 01/03/23 04:45 Chloride 102 mmol/L (101-111) 01/03/23 04:45 Carbon Dioxide 26 mmol/L (21-32) 01/03/23 04:45 Anion Gap 6.0 (6-13) 01/03/23 04:45 BUN 12 mg/dL (6-20) 01/03/23 04:45 Creatinine 0.6 mg/dL (0.6-1.3) 01/03/23 04:45 Estimated GFR (MDRD) 104 (>89) 01/03/23 04:45 Glucose 104 mg/dL (74-104) 01/03/23 04:45 Lactic Acid 1.6 mmol/L (0.5-2.2) 01/02/23 00:27 Calcium 8.9 mg/dL (8.5-10.3) 01/03/23 04:45 Phosphorus 3.9 mg/dL (2.5-5.0) 01/02/23 08:27 Magnesium 1.5 mg/dL (1.7-2.3) L 01/03/23 04:45 Total Bilirubin 0.3 mg/dL (0.2-1.0) 01/02/23 00:27 AST 24 IU/L (10-42) 01/02/23 00:27 ALT 76 IU/L (10-60) H 01/02/23 00:27 Alkaline Phosphatase 90 IU/L (42-121) 01/02/23 00:27 Total Creatine Kinase < 10 IU/L (30-223) L 01/02/23 00:27 Total Protein 6.4 g/dL (6.4-8.9) 01/02/23 00:27 Albumin 4.1 g/dL (3.2-5.5) 01/02/23 00:27 Globulin 2.3 g/dL (2.1-4.2) 01/02/23 00: Albumin/Globulin Ratio 1.8 (1.0-2.2) 01/02/23 00: Lipase 30 U/L (11-82) 01/02/23 00:27 Urine Color YELLOW 01/02/23 00: Urine Clarity CLEAR (CLEAR) 01/02/23 00: Urine pH 7.0 PH (5.0-7.5) 01/02/23 00:27 Ur Specific [place] 1.020 (1.002-1.030) 01/02/23 00: Urine Protein NEGATIVE mg/dL (NEGATIVE) 01/02/23 00: Urine Glucose (UA) NEGATIVE mg/dL (NEGATIVE) 01/02/23 00: Urine Ketones NEGATIVE mg/dL (NEGATIVE) 01/02/23 00: Urine Occult Blood NEGATIVE (NEGATIVE) 01/02/23 00: Urine Nitrite NEGATIVE (NEGATIVE) 01/02/23 00: Urine Bilirubin NEGATIVE (NEGATIVE) 01/02/23 00: Urine Urobilinogen 0.2 (NORMAL) E.U./dL (NORMAL) 01/02/23 00: Ur Leukocyte Esterase NEGATIVE (NEGATIVE) 01/02/23 00: Ur Microscopic Review NOT INDICATED 01/02/23 00: Urine Culture Comments NOT INDICATED 01/02/23 00:27 Nasal Adenovirus (PCR) NOT DETECTED 01/02/23 00: Nasal B. parapertussis DNA (PCR) NOT DETECTED 01/02/23 00: Nasal Coronavir 229E PCR NOT DETECTED 01/02/23 00:27 Nasal Coronavir HKU1 PCR NOT DETECTED 01/02/23 00:27 Nasal Coronavir NL63 PCR NOT DETECTED 01/02/23 00:27 Nasal Coronavir OC43 PCR NOT DETECTED 01/02/23 00:27 Nasal Enterovir/Rhinovir PCR NOT DETECTED 01/02/23 00:27 Nasal Influenza B PCR NOT DETECTED 01/02/23 00:27 Nasal Influenza A PCR NOT DETECTED 01/02/23 00:27 Nasal Parainfluen 1 PCR NOT DETECTED 01/02/23 00:27 Nasal Parainfluen 2 PCR NOT DETECTED 01/02/23 00:27 Nasal Parainfluen 3 PCR NOT DETECTED 01/02/23 00:27 Nasal Parainfluen 4 PCR NOT DETECTED 01/02/23 00:27 Nasal RSV (PCR) NOT DETECTED 01/02/23 00:27 Nasal B.pertussis DNA PCR NOT DETECTED 01/02/23 00:27 Nasal C.pneumoniae (PCR) NOT DETECTED 01/02/23 00:27 [place] Human Metapneumo PCR NOT DETECTED 01/02/23 00:27 Nasal M.pneumoniae (PCR) NOT DETECTED 01/02/23 00:27 Nasal SARS-CoV-2 (PCR) NOT DETECTED 01/02/23 00:27 - Procedures Procedures: Procedures EXCISE AXILLARY NODE (07/15/13) EXCISION OF HEMORRHOIDAL PLEXUS, OPEN APPROACH (12/03/18) EXCISION OF LEFT BREAST, OPEN APPROACH (10/30/22) INSPECTION OF LOWER INTESTINAL TRACT, ENDO (12/03/18) SUBTOTAL MASTECTOMY (08/12/13)
[2023-01-03] MEDS: MEROPENEM 1 GM in SODIUM CHLORIDE 0.9% MINIBAG 100 ML IV SCH ×2 (13:28→21:06)
[2023-01-03] MEDS: METOCLOPRAMIDE 10 MG/2 ML VIAL IVP PRN (14:24)
[2023-01-03] MEDS ORDERED: HALOPERIDOL 10 MG/5 ML UDC PO PRN (14:31)
[2023-01-03] MEDS ORDERED: SODIUM CHLORIDE 0.9% IV PRN (15:37)
[2023-01-03] MEDS ORDERED: ONDANSETRON IV PRN (15:37)
[2023-01-03] MEDS: PROCHLORPERAZINE 10 MG/2 ML VIAL IVP PRN ×2 (15:45→23:44)
[2023-01-03] MEDS ORDERED: MULTIVITAMIN W/MINERALS TABLET PO SCH (17:00)
[2023-01-03] MEDS: OLIVE IV SCH (19:06)
[2023-01-03] MEDS: PHOSPHO IV SCH (19:06)
[2023-01-03] MEDS: SOY IV SCH (19:06)
[2023-01-03] MEDS: FAT EMULSION IV SCH (19:06)
[2023-01-03] MEDS: PPN (CLINIMIX E 4.25/5) 2,000 ML with MULTIVITAMIN 10 ML, TRACE ELEMENTS 1 ML IV SCH ×3 (19:06)
[2023-01-04] MEDS: SODIUM CHLORIDE 0.9% 1,000 ML IV SCH (01:08)
[2023-01-04] MEDS: MEROPENEM 1 GM in SODIUM CHLORIDE 0.9% MINIBAG 100 ML IV SCH ×3 (04:52→21:20)
[2023-01-04] MEDS: METOCLOPRAMIDE 10 MG/2 ML VIAL IVP PRN ×3 (04:52→19:19)
[2023-01-04 05:12] LABS: BASOPHILS % (AUTO) 5.3 %; EOSINOPHILS % (AUTO) 0.9 %; HCT - HEMATOCRIT 27.2 % (37.0-47.0); HGB - HEMOGLOBIN 9.1 g/dL (12.0-16.0); LYMPHOCYTES % (AUTO) 26.3 %; MEAN CORPUSCULAR HEMOGLOBIN 30.2 pg (27.0-31.0); MEAN CORPUSCULAR HGB CONC 33.5 g/dL (32.0-36.0); MEAN CORPUSCULAR VOLUME 90.4 fL (81.0-99.0); MEAN PLATELET VOLUME 10.7 fL (7.9-10.8); MONOCYTES % (AUTO) 14.9 %; NEUTROPHILS % (AUTO) 51.7 %; PLT - PLATELET COUNT 99 10^3/uL (130-450); RED BLOOD COUNT 3.01 10^6/uL (4.20-5.40); RED CELL DISTRIBUTION WIDTH 12.1 % (12.0-15.0)
[2023-01-04 05:22] LABS: WHITE BLOOD COUNT 1.1 x10^3/uL (4.8-10.8)
[2023-01-04 05:23] LABS: ABNORMAL LYMPHS % (MANUAL) 0 %
[2023-01-04 05:33] LABS: ALBUMIN 3.4 g/dL (3.2-5.5); ALBUMIN/GLOBULIN RATIO 1.4 (1.0-2.2); BILIRUBIN,TOTAL 0.2 mg/dL (0.2-1.0); CALCIUM 8.8 mg/dL (8.5-10.3); CREATININE 0.5 mg/dL (0.6-1.3); MAGNESIUM 1.5 mg/dL (1.7-2.3); POTASSIUM 3.3 mmol/L (3.5-4.5); TOTAL PROTEIN 5.8 g/dL (6.4-8.9)
[2023-01-04 05:51] LABS: BAND NEUTROPHILS % (MANUAL) 2 %; BASOPHILS # (MANUAL) 0.1 10^3/uL (0-0.1); BASOPHILS % (MANUAL) 8 %; DIFFERENTIAL COMMENT MANUAL DIFFERENTIAL; LYMPHOCYTES # (MANUAL) 0.4 10^3/uL (1.5-3.5); LYMPHOCYTES % (MANUAL) 36 %; MONOCYTES # (MANUAL) 0.2 10^3/uL (0.0-1.0); NEUTROPHILS # (MANUAL) 0.4 10^3/uL (1.5-6.6); PLATELET ESTIMATE, MANUAL DECREASED (<130,000) (NORMAL); RBC MORPHOLOGY (MULTIPLE) NORMAL APPEARANCE (NORMAL)
[2023-01-04] MEDS: PROCHLORPERAZINE 10 MG/2 ML VIAL IVP PRN (06:52)
[2023-01-04] MEDS: HEPARIN 5,000 UNIT/ML VIAL SUBQ SCH ×2 (08:27→21:51)
[2023-01-04] MEDS: CHOLECALCIFEROL 25 MCG TABLET PO SCH (08:28)
[2023-01-04] MEDS: SODIUM CHLORIDE FLUSH 0.9% 10 ML SYRINGE IVP SCH ×2 (08:28→16:15)
[2023-01-04] MEDS ORDERED: MAGNESIUM SULFATE 2 GRAM 2 GM/50 ML BAG IV ONE (09:20)
--- NOTE | 2023-01-04 09:22 | PROVIDER PROGRESS NOTE ---
Assessment/Plan - Problem List (1) Neutropenic fever Assessment/Plan: No obvious source was found for the fever at admission. The patient was started on IV cefepime. Today I discussed the case with her oncologist Dr. Onelia Garcia ([phone]). Dr. Garcia said that usually neutropenic fevers are given IV meropenem empirically. When I discussed the case with Dr. Onelia Garcia, asking whether we should give Genex for stimulating blood cells. Dr. Garcia said that the patient got Neulasta, a long-acting agent 1 week ago, when she got her last chemotherapy therefore no other marrow stimulator meds are indicated now Patient's total white blood count has gone up from 0.4 to 1.1 today and absolute neutrophil count went up from 0 to 0.4 (all labs were reviewed). Plan: Follow CBC daily Continue with a neutropenic precaution diet Continue with neutropenic isolation Cont with empiric IV meropenem (2) Nausea and vomiting Qualifiers: Vomiting type: unspecified Qualified Code(s): R11.2 - Nausea with vomiting, unspecified Assessment/Plan: The patient has had nausea and vomiting with negligible oral intake for over a week. Zofran iv has been maximized. Olanzepin sl made her trow upa at home, so was stopped here. The patient also reported that lorazepam helps, so it was also ordered as needed for nausea. Yesterday I added iv Reglan prn and Compazine prn to try to control nausea Yesterday she was started on peripheral nutrition via IV, discussed with Delivery Nurse Eugenia Today I tried to reach Dr. Onelia Garcia to get more recommendations regarding choices for controlling N/V, but there was no answer on her phone. Plan: We will continue with antiemetics as needed. Today I will add Haldol iv prn The wanted dry food like saltine crackers which I will allow or she may choose some dry foods that hopefully will not be vomited (3) Ductal carcinoma of breast Qualifiers: Laterality: unspecified laterality Qualified Code(s): C50.919 - Malignant neoplasm of unspecified site of unspecified female breast Assessment/Plan: As per history. Patient got chemotherapy 1 week ago Plan: Continue to follow-up with her Oncologist long-term as outpt (4) Hypomagnesemia Assessment/Plan: From inadequate p.o. intake and from losses and vomiting Plan: Replace with IV mag Follow mag level daily (5) Hypokalemia Assessment/Plan: From inadequate p.o. intake and from losses with vomiting Plan: Replace with IV K riders Follow BMP daily - Current Meds Current Meds: Current Medications Generic Name Dose Route Start Last Admin Trade Name Freq PRN Reason Stop Dose Admin Acetaminophen 650 mg 01/02/23 03:13 01/02/23 17:17 Acetaminophen 325 Mg Tablet PO 650 mg Q4HR PRN Administration Pain 1 to 4, or Fever Cholecalciferol 50 mcg 01/02/23 09:00 01/04/23 08:28 Cholecalciferol 25 Mcg Tablet PO 50 mcg DAILY FRANK Administration Heparin Sodium (Porcine) 5,000 unit 01/02/23 09:00 01/04/23 08:27 Heparin 5,000 Unit/Ml Vial SUBQ Not Given BID FRANK Acetaminophen 1,000 mg in 100 mls @ 400 mls/hr 01/02/23 19:05 01/03/23 16:32 Acetaminophen IV Infused Q6HR PRN Infusion Pain or Fever > 38C (100.4F) Multivitamins 10 ml/ TRACE 2,011 mls @ 83 mls/hr 01/03/23 19:00 01/03/23 19:06 ELEMENTS 1 ml/ Amino Acids/ IV 83 mls/hr Electrolytes/Dextrose 1900 [facility] Administration Protocol FAT EMULSION/OLIVE/SOY/PHOSPHO 50 gm in 250 mls @ 21 mls/hr 01/03/23 19:00 01/04/23 07:00 Clinolipid 20% Iv Fat Emulsion IV Infused 1900 FRANK Infusion Meropenem 1 gm/ Sodium 100 mls @ 200 mls/hr 01/03/23 13:00 01/04/23 05:41 Chloride IV Infused Q8H FRANK Infusion Lorazepam 1 mg 01/02/23 09:07 01/03/23 07:33 Lorazepam 1 Mg Tablet PO 1 mg Q6HR PRN Administration Nausea / Vomiting Metoclopramide HCl 5 mg 01/03/23 08:59 01/04/23 04:52 Metoclopramide 10 Mg/2 Ml Vial IVP 5 mg Q6HR PRN Administration Nausea / Vomiting Ondansetron HCl 4 mg 01/02/23 03:13 01/04/23 08:28 Ondansetron Odt 4 Mg Tablet TL 4 mg Q6HR PRN Administration Nausea / Vomiting Prochlorperazine Edisylate 10 mg 01/02/23 03:13 01/04/23 06:52 Prochlorperazine 10 Mg/2 Ml Vial IVP 10 mg Q6HR PRN Administration Nausea / Vomiting Sodium Chloride 10 ml 01/02/23 09:00 01/04/23 08:28 Sodium Chloride Flush 0.9% 10 Ml Syringe IVP 10 ml 0100,0900,1700 FRANK Administration - Lab Result Fish Bone Diagrams: 01/04/23 04:55 01/04/23 04:55 - Additional Planning My Orders: My Active Orders 01/03/23 08:59 Metoclopramide Inj [Reglan Inj] 5 mg IVP Q6HR PRN 01/03/23 11:05 Daily Weight [RC] DAILY Message to Nursing [RC] QSHIFT 01/03/23 13:00 Meropenem [Merrem] 1 gm Sodium Chloride 0.9% Minibag [Normal Saline 0.9% M inibag] 100 ml IV Q8H 01/03/23 15:37 Ondansetron Inj [Zofran Inj] 12 mg Sodium Chloride 0.9% [Normal Saline 0.9%] 50 ml IV DAILY 01/03/23 19:00 Fat Emulsion/[place]/Soy/Phospho [Clinolipid 20% IV Fat Emulsion] 50 gm in 250 ml IV 1899 Multivitamin [Infuvite] 10 ml Trace Elements [Tralement Vial] 1 ml Ppn (Clinimix E 4.25/5) [Clinimix E 4.25%-5% Solution] 2,000 ml IV 1900 01/04/23 09:20 MAGNESIUM SULFATE 2 GRAMS IV X1 Magnesium Sulfate 2 Gram [Magnesium Sulfate] 2 gm in 50 ml IV ONCE 01/04/23 10:00 Potassium Chloride/Water 10 mEq/100 mL q1h (Enter # of bags) Potassium Chlor 10 Meq/100 ml [Potassium Chloride] 10 meq in 100 ml IV Q1H 01/05/23 05:00 BMP - BASIC METABOLIC PANEL [CHEM] DAILYLAB CBC - COMP BLD CT W/AUTO DIFF [HEME] DAILYLAB 01/06/23 05:00 BMP - BASIC METABOLIC PANEL [CHEM] DAILYLAB CBC - COMP BLD CT W/AUTO DIFF [HEME] DAILYLAB COMPREHENSIVE METABOLIC PANEL [CHEM] Routine MAGNESIUM [CHEM] Routine PHOSPHORUS [CHEM] Routine PREALBUMIN [CHEM] Routine TRIGLYCERIDES [CHEM] Routine 01/07/23 05:00 BMP - BASIC METABOLIC PANEL [CHEM] DAILYLAB CBC - COMP BLD CT W/AUTO DIFF [HEME] DAILYLAB 01/08/23 05:00 COMPREHENSIVE METABOLIC PANEL [CHEM] Routine MAGNESIUM [CHEM] Routine PHOSPHORUS [CHEM] Routine PREALBUMIN [CHEM] Routine TRIGLYCERIDES [CHEM] Routine 01/11/23 05:00 COMPREHENSIVE METABOLIC PANEL [CHEM] Routine MAGNESIUM [CHEM] Routine PHOSPHORUS [CHEM] Routine PREALBUMIN [CHEM] Routine TRIGLYCERIDES [CHEM] Routine Subjective - Subjective Patient Reports: Nausea (Almost nothing that she takes in orally stays down except saltine crackers. She vomits everything else up. She had a normal BM this morning.) Objective Vital Signs: Vital Signs - 24 hr 01/03/23 01/03/23 01/04/23 15:49 23:40 08:00 Temperature 37.0 C 36.7 C 37.1 C Heart Rate [ 85 77 88 Brachial] Respiratory 18 16 18 Rate Blood Pressure 108/55 L 117/72 113/86 H [Right Brachial artery] O2 Saturation 98 96 95 Oxygen O2 Source Room air I&O (Last 24 Hrs): Intake and Output Totals x24h 01/02/23 01/03/23 01/04/23 23:59 23:59 23:59 Intake Total 2742 2376.667 1691.666 Output Total 200 300 Balance 2542 2076.667 1691.666 General: Oriented x3 HEENT: Mucous membr. moist/pink Neck: Supple, No JVD Neuro: Alert, Non Focal Cardiovascular: Regular rate Respiratory: No respiratory distress Abdomen: No tenderness Extremities: No edema - Results Results: Laboratory Results WBC 1.1 x10^3/uL (4.8-10.8) L* 01/04/23 04:55 RBC 3.01 10^6/uL (4.20-5.40) L 01/04/23 04:55 Hgb 9.1 g/dL (12.0-16.0) L 01/04/23 04:55 Hct 27.2 % (37.0-47.0) L 01/04/23 04:55 MCV 90.4 fL (81.0-99.0) 01/04/23 04:55 MCH 30.2 pg (27.0-31.0) 01/04/23 04:55 MCHC 33.5 g/dL (32.0-36.0) 01/04/23 04:55 RDW 12.1 % (12.0-15.0) 01/04/23 04:55 Plt Count 99 10^3/uL (130-450) L 01/04/23 04:55 MPV 10.7 fL (7.9-10.8) 01/04/23 04:55 Neut # (Auto) Not Reportable 01/04/23 04:55 Lymph # (Auto) Not Reportable 01/04/23 04:55 [place] # (Auto) Not Reportable 01/04/23 04:55 Eos # (Auto) Not Reportable 01/04/23 04:55 Baso # (Auto) Not Reportable 01/04/23 04:55 Absolute Nucleated RBC Not Reportable 01/04/23 04:55 Total Counted 50 01/04/23 04:55 Band Neuts % (Manual) 2 % (0-10) 01/04/23 04:55 Abnorm Lymph % (Manual) 0 % 01/04/23 04:55 Metamyelocytes % 2 % (-0) H 01/03/23 04:45 Nucleated RBC % Not Reportable 01/04/23 04:55 Neutrophils # (Manual) 0.4 10^3/uL (1.5-6.6) L* 01/04/23 04:55 Lymphocytes # (Manual) 0.4 10^3/uL (1.5-3.5) L 01/04/23 04:55 Monocytes # (Manual) 0.2 10^3/uL (0.0-1.0) 01/04/23 04:55 Eosinophils # (Manual) 0.0 10^3/uL (0-0.7) 01/04/23 04:55 Basophils # (Manual) 0.1 10^3/uL (0-0.1) 01/04/23 04:55 Differential Comment MANUAL DIFFERENTIAL 01/04/23 04:55 Platelet Estimate DECREASED (<130,000) (NORMAL) 01/04/23 04:55 Platelet Morphology NORMAL APPEARANCE (NORMAL) 01/02/23 08:27 RBC Morph Micro Appear NORMAL APPEARANCE (NORMAL) 01/04/23 04:55 PT 11.9 secs (9.9-12.6) 01/02/23 00:27 INR 1.1 (0.8-1.2) 01/02/23 00:27 VBG pH 7.473 (7.31-7.41) H 01/02/23 00:27 VBG pCO2 39.9 mmHg (41-51) L 01/02/23 00: VBG pO2 37.7 mmHg (25-47) 01/02/23 00:27 VBG HCO3 28.6 mmol/L (23-28) H 01/02/23 00:27 VBG Total CO2 29.8 mmol/L (24-29) H 01/02/23 00:27 VBG O2 Saturation 76.7 % (60-80) 01/02/23 00:27 VBG Base Excess 4.7 mmol/L (-2 - +2) H 01/02/23 00:27 Sodium 135 mmol/L (135-145) 01/04/23 04:55 Potassium 3.3 mmol/L (3.5-4.5) L 01/04/23 04:55 Chloride 102 mmol/L (101-111) 01/04/23 04:55 Carbon Dioxide 26 mmol/L (21-32) 01/04/23 04:55 Anion Gap 7.0 (6-13) 01/04/23 04:55 BUN 10 mg/dL (6-20) 01/04/23 04:55 Creatinine 0.5 mg/dL (0.6-1.3) L 01/04/23 04:55 Estimated GFR (MDRD) 128 (>89) 01/04/23 04:55 Glucose 114 mg/dL (74-104) H 01/04/23 04:55 Lactic Acid 1.6 mmol/L (0.5-2.2) 01/02/23 00:27 Calcium 8.8 mg/dL (8.5-10.3) 01/04/23 04:55 Phosphorus 3.0 mg/dL (2.5-5.0) 01/04/23 04:55 Magnesium 1.5 mg/dL (1.7-2.3) L 01/04/23 04:55 Total Bilirubin 0.2 mg/dL (0.2-1.0) 01/04/23 04:55 AST 14 IU/L (10-42) 01/04/23 04:55 ALT 41 IU/L (10-60) 01/04/23 04:55 Alkaline Phosphatase 71 IU/L (42-121) 01/04/23 04:55 Total Creatine Kinase < 10 IU/L (30-223) L 01/02/23 00:27 Total Protein 5.8 g/dL (6.4-8.9) L 01/04/23 04:55 Albumin 3.4 g/dL (3.2-5.5) 01/04/23 04:55 Globulin 2.4 g/dL (2.1-4.2) 01/04/23 04:55 Albumin/Globulin Ratio 1.4 (1.0-2.2) 01/04/23 04:55 Prealbumin 16 mg/dL (17-34) L 01/04/23 04:55 Triglycerides 178 mg/dL (48-352) 01/04/23 04:55 Lipase 30 U/L (11-82) 01/02/23 00:27 Urine Color YELLOW 01/02/23 00:27 Urine Clarity CLEAR (CLEAR) 01/02/23 00:27 Urine pH 7.0 PH (5.0-7.5) 01/02/23 00:27 Ur Specific [place] 1.020 (1.002-1.030) 01/02/23 00:27 Urine Protein NEGATIVE mg/dL (NEGATIVE) 01/02/23 00:27 Urine Glucose (UA) NEGATIVE mg/dL (NEGATIVE) 01/02/23 00:27 Urine Ketones NEGATIVE mg/dL (NEGATIVE) 01/02/23 00:27 Urine Occult Blood NEGATIVE (NEGATIVE) 01/02/23 00:27 Urine Nitrite NEGATIVE (NEGATIVE) 01/02/23 00:27 Urine Bilirubin NEGATIVE (NEGATIVE) 01/02/23 00:27 Urine Urobilinogen 0.2 (NORMAL) E.U./dL (NORMAL) 01/02/23 00:27 Ur Leukocyte Esterase NEGATIVE (NEGATIVE) 01/02/23 00:27 Ur Microscopic Review NOT INDICATED 01/02/23 00:27 Urine Culture Comments NOT INDICATED 01/02/23 00:27 Nasal Adenovirus (PCR) NOT DETECTED 01/02/23 00:27 Nasal B. parapertussis DNA (PCR) NOT DETECTED 01/02/23 00:27 Nasal Coronavir 229E PCR NOT DETECTED 01/02/23 00:27 Nasal Coronavir HKU1 PCR NOT DETECTED 01/02/23 00:27 Nasal Coronavir NL63 PCR NOT DETECTED 01/02/23 00:27 Nasal Coronavir OC43 PCR NOT DETECTED 01/02/23 00:27 Nasal Enterovir/Rhinovir PCR NOT DETECTED 01/02/23 00:27 Nasal Influenza B PCR NOT DETECTED 01/02/23 00:27 Nasal Influenza A PCR NOT DETECTED 01/02/23 00:27 Nasal Parainfluen 1 PCR NOT DETECTED 01/02/23 00:27 Nasal Parainfluen 2 PCR NOT DETECTED 01/02/23 00:27 Nasal Parainfluen 3 PCR NOT DETECTED 01/02/23 00:27 Nasal Parainfluen 4 PCR NOT DETECTED 01/02/23 00:27 Nasal RSV (PCR) NOT DETECTED 01/02/23 00:27 Nasal B.pertussis DNA PCR NOT DETECTED 01/02/23 00:27 Nasal C.pneumoniae (PCR) NOT DETECTED 01/02/23 00:27 [place] Human Metapneumo PCR NOT DETECTED 01/02/23 00:27 Nasal M.pneumoniae (PCR) NOT DETECTED 01/02/23 00:27 Nasal SARS-CoV-2 (PCR) NOT DETECTED 01/02/23 00:27 - Procedures Procedures: Procedures EXCISE AXILLARY NODE (07/15/13) EXCISION OF HEMORRHOIDAL PLEXUS, OPEN APPROACH (12/03/18) EXCISION OF LEFT BREAST, OPEN APPROACH (10/30/22) INSPECTION OF LOWER INTESTINAL TRACT, ENDO (12/03/18) SUBTOTAL MASTECTOMY (08/12/13)
[2023-01-04] MEDS ORDERED: ONDANSETRON 4 MG/2 ML VIAL IVP PRN (10:08)
[2023-01-04] MEDS: POTASSIUM CHLOR 10 MEQ/100 ML 10 MEQ/100 ML BAG IV SCH ×4 (10:56→14:22)
[2023-01-04] MEDS: SODIUM CHLORIDE FLUSH 0.9% 10 ML SYRINGE IVP PRN (12:17)
[2023-01-04] MEDS ORDERED: HALOPERIDOL 5 MG/ML VIAL IVP PRN (15:43)
[2023-01-04] MEDS: FAT EMULSION IV SCH (19:19)
[2023-01-04] MEDS: OLIVE IV SCH (19:19)
[2023-01-04] MEDS: PHOSPHO IV SCH (19:19)
[2023-01-04] MEDS: SOY IV SCH (19:19)
[2023-01-04] MEDS: PPN (CLINIMIX E 4.25/5) 2,000 ML with MULTIVITAMIN 10 ML, TRACE ELEMENTS 1 ML IV SCH ×3 (19:19)
[2023-01-04] MEDS: LORazepam 1 MG TABLET PO PRN (19:44)
[2023-01-05] MEDS: SODIUM CHLORIDE FLUSH 0.9% 10 ML SYRINGE IVP SCH ×2 (01:15→08:36)
[2023-01-05] MEDS: METOCLOPRAMIDE 10 MG/2 ML VIAL IVP PRN (01:53)
[2023-01-05] MEDS: SODIUM CHLORIDE FLUSH 0.9% 10 ML SYRINGE IVP PRN ×2 (01:54→05:52)
[2023-01-05 05:11] LABS: BASOPHILS % (AUTO) 1.1 %; EOSINOPHILS % (AUTO) 0.2 %; HCT - HEMATOCRIT 27.3 % (37.0-47.0); HGB - HEMOGLOBIN 9.2 g/dL (12.0-16.0); LYMPHOCYTES % (AUTO) 14.6 %; MEAN CORPUSCULAR HEMOGLOBIN 30.7 pg (27.0-31.0); MEAN CORPUSCULAR HGB CONC 33.7 g/dL (32.0-36.0); MONOCYTES % (AUTO) 12.2 %; NEUTROPHILS % (AUTO) 66.5 %; PLT - PLATELET COUNT 109 10^3/uL (130-450); RED CELL DISTRIBUTION WIDTH 12.3 % (12.0-15.0); WHITE BLOOD COUNT 4.7 x10^3/uL (4.8-10.8)
[2023-01-05] MEDS: LORazepam 1 MG TABLET PO PRN ×2 (05:13→10:59)
[2023-01-05 05:19] LABS: ABNORMAL LYMPHS % (MANUAL) 0 %
[2023-01-05 05:27] LABS: CALCIUM 9.2 mg/dL (8.5-10.3); CREATININE 0.6 mg/dL (0.6-1.3); POTASSIUM 3.7 mmol/L (3.5-4.5)
[2023-01-05] MEDS: MEROPENEM 1 GM in SODIUM CHLORIDE 0.9% MINIBAG 100 ML IV SCH (05:43)
[2023-01-05 05:57] LABS: BAND NEUTROPHILS % (MANUAL) 23 %; DIFFERENTIAL COMMENT MANUAL DIFFERENTIAL; EOSINOPHILS # (MANUAL) 0.1 10^3/uL (0-0.7); LYMPHOCYTES # (MANUAL) 0.8 10^3/uL (1.5-3.5); LYMPHOCYTES % (MANUAL) 18 %; MONOCYTES # (MANUAL) 0.3 10^3/uL (0.0-1.0); NEUTROPHILS # (MANUAL) 3.4 10^3/uL (1.5-6.6); PLATELET ESTIMATE, MANUAL DECREASED (<130,000) (NORMAL); RBC MORPHOLOGY (MULTIPLE) NORMAL APPEARANCE (NORMAL)
[2023-01-05] MEDS: CHOLECALCIFEROL 25 MCG TABLET PO SCH (08:36)
[2023-01-05] MEDS: HEPARIN 5,000 UNIT/ML VIAL SUBQ SCH (10:00)
--- NOTE | 2023-01-05 10:44 | Discharge Plan ---
Discharge Plan Problem Reviewed?: Yes Disposition: Home, Self Care Condition: Stable Diet: Soft (Eat a diet that you can tolerate, and stay well hydrated.) Activity Restrictions: Activity as Tolerated Shower Restrictions: No Driving Restrictions: No Health Concerns: You were hospitalized to manage a very low white blood count and a fever, plus severe nausea and vomiting. You received IV antibiotics as a "just in case", but no infection was ever found and all your cultures have turned up not growing any bacteria. You do not need antibiotics as you are being discharged home. You also received iv nutrition to give you calories while you had nausea and vomiting. Now that you can tolerate liquids and foods, you are being discharged home and advised to continue on a diet that you can tolerate that avoids nausea and vomiting. If you have recurrent trouble, call the [facility] [place] [facility] clinic for advice, or come to the ER. You may resume all your usual pre-hospital medications, but while you are barely eating you may remain off the statin cholesterol medication. Plan of Treatment: As above. Care Goals: Improvement in symptoms and stabilization are the goals. Assessment: The patient understands and is agreeable with the plan. Follow-Up Care: [facility] [place] [facility] Clinic - Medical No Smoking: If you smoke, Please STOP! Call for help.
--- NOTE | 2023-01-05 10:55 | DISCHARGE SUMMARY ---
Discharge Summary Admit Date: 01/02/23 Discharge Date: 01/05/23 Discharging Provider: Dr Helena Veliz Primary Care Provider: Dr Onelia Garcia ([facility] [place] Code Status: Attempt Resuscitation Condition at Discharge: Stable Discharge Disposition: 01 Home, Self Care - HPI History of Present Illness: 57 yo F with PMH of HLD, Anxiety, L Breast Invasive Ductal Carcinoma T1b G2, ER positive s/p B/L Mastectomies on Chemotherapy with Taxotex/Cytoxen presented to the ER with c/o 1 day h/o Fever, 3 week h/o N/V. Pt started Chemotherapy 3 weeks ago; she had her last infusion 1 week ago. Since she started 3 weeks ago, she has had persistent Nausea with vomiting, non-bloody. She has been unable to tolerate PO fluids, food. No abdo pain, no diarrhea. Today, around 11PM, she developed subjective F/C. She checked her temperature and it was 101F, so she came to the ER. No CP/SOB/cough/coryza. No dysuria. In the ER, T99.5F, HR 126, WBC 0.4, ANC 0, Hgb 10.6, Na 134, Mg 1.6, Bld Cx was drawn. CXR:WNL. Pt was given Cefepime and Lorazaepam (for nausea) in the ER. She will be admitted to manage neutropenic fever and nausea and vomiting. - HOSPITAL COURSE Hospital Course: (1) Neutropenic fever No obvious source was found for the fever on admission work-up. The patient was started on IV cefepime. She spiked a fever the following day and repeat blood cultures were done. After I discussed the case with her oncologist Dr. Onelia Garcia ([phone]), she was changed to IV meropenem empirically. When asking whether we should give Genex for stimulating blood cells, Dr. Garcia said that the patient got Neulasta, a week previously, when she got her last chemotherapy, therefore no other marrow med was indicated. We followed neutropenic precautions and diet. All her cultures remained neg. Her WBC started to rebound on 01/04 and she was discharged on 01/05, with a WBC 4.7 and ANC 3.4. (2) Nausea and vomiting The patient had severe nausea and vomiting with negligible oral intake for over a week. Here we maximized Zofran iv, used prn Lorazepam, added iv Reglan prn and Compazine prn, to control nausea. Patient was started on peripheral iv nutrition. She wanted dry food like saltine crackers. On 01/05, her N/V resolved, she tolerated soft foods, and was able to be discharged. She was advised to resume all her usual pre-hospital medications except she can remain off of the statin, given her recent anorexia. (3) Ductal carcinoma of breast Patient got chemotherapy 1 week ago. Continue to follow-up with her Oncologist long-term as outpt (4) Hypomagnesemia From inadequate p.o. intake and from losses in vomiting. She got iv replacement. (5) Hypokalemia From inadequate p.o. intake and from losses in vomiting. She got iv replacement. - ALLERGIES Allergies/Adverse Reactions: Allergies Allergy/AdvReac Type Severity Reaction Status Date / Time tamoxifen AdvReac joint pain Verified 10/30/22 09:05 - MEDICATIONS Home Medications: Ambulatory Orders Medication Instructions Recorded Confirmed Cholecalciferol (Vitamin D3) 2,000 unit PO DAILY 07/15/13 01/03/23 [Vitamin D3] LORazepam [Ativan] 1 mg PO Q6HR PRN 12/08/22 01/03/23 Lidocaine/Prilocain 2.5% Cream 5 gm TOP PRN PRN 12/08/22 01/03/23 [Emla 2.5% Cream] Prochlorperazine [Compazine] 10 mg PO Q6HR PRN tab 01/05/23 - PHYSICAL EXAM AT DISCHARGE General Appearance: positive: No acute distress, Alert, Other (Disheveled and appears fatigued. BMI is 21.) Eyes Bilateral: positive: Normal inspection, No lid inflammation ENT: positive: ENT inspection nml, No signs of dehydration Neck: positive: Nml inspection, No JVD Respiratory: positive: No respiratory distress, Breath sounds nml Cardiovascular: positive: Regular rate & rhythm, No murmur Abdomen: positive: Non-tender, Nml bowel sounds, No distention Skin: positive: Warm, Dry Extremities: positive: Non-tender, No pedal edema Neurologic/Psychiatric: positive: Oriented x3, Motor nml - LABS Result Diagrams: 01/05/23 04:37 01/05/23 04:37 - DIAGNOSTIC IMAGING Diagnostic Imaging Results: Final report reviewed - FOLLOW UP Follow Up: See Dr Garcia and continue usual Oncology F/U appointments. - TIME SPENT Time Spent in Discharge (Minutes): 30
[2023-01-05 13:34] VITALS: BP 116/77; O2SAT 97
== END 2023-01-05 13:20 | disposition home or self-care (01) | DRG 809 ==
LOC: ED 23:50 → MS2 01-02 03:07
PROVIDERS: ADMIT Internal Medicine; ATTEND Internal Medicine
DX: D70.9 Neutropenia, unspecified (principal); E87.1 Hypo-osmolality and hyponatremia; R50.81 Fever presenting with conditions classified elsewhere; R11.2 Nausea with vomiting, unspecified; C50.912 Malignant neoplasm of unspecified site of left female breast; E83.42 Hypomagnesemia; E87.6 Hypokalemia; E78.00 Pure hypercholesterolemia, unspecified; H54.7 Unspecified visual loss; D64.9 Anemia, unspecified; F41.9 Anxiety disorder, unspecified; R00.0 Tachycardia, unspecified; R51.9 Headache, unspecified; Z17.0 Estrogen receptor positive status [ER+]; Z20.822 Contact with and (suspected) exposure to COVID-19; Z79.899 Other long term (current) drug therapy; Z85.3 Personal history of malignant neoplasm of breast; Z90.13 Acquired absence of bilateral breasts and nipples; Z92.21 Personal history of antineoplastic chemotherapy
CPT/HCPCS: 36415; 71045; 80048; 80053; 81003; 82550; 82803; 83605; 83690; 83735; 84100; 84134; 84478; 85025; 85610; 87040; 87633; 93005; 96361; 96365; 96375; 99284; 99285; A9270; J0131; J2060; J2185; J2405; J2765; J3490; J7040; J8499; Q0162; 81001; 87086

== ENCOUNTER 2023-02-08 13:18 | Outpatient (CLI) | payer OTHER | END 2023-02-08 13:19 | disposition home or self-care (01) | LOC: RT 13:18 | PROVIDERS: ATTEND Internal Medicine Hematology & Oncology | DX: Z01.811 Encounter for preprocedural respiratory examination (principal); C50.412 Malignant neoplasm of upper-outer quadrant of left female breast | CPT/HCPCS: 94010; 94727; 94729 ==

== ENCOUNTER 2023-02-21 09:28 | Outpatient (CLI) | payer OTHER ==
[2023-02-21 09:46] LABS: BASOPHILS # (AUTO) 0.1 10^3/uL (0.0-0.1); BASOPHILS % (AUTO) 0.9 %; EOSINOPHILS # (AUTO) 0.3 10^3/uL (0.0-0.7); EOSINOPHILS % (AUTO) 4.8 %; HCT - HEMATOCRIT 37.8 % (37.0-47.0); HGB - HEMOGLOBIN 12.4 g/dL (12.0-16.0); LYMPHOCYTES # (AUTO) 1.2 10^3/uL (1.5-3.5); MEAN CORPUSCULAR HEMOGLOBIN 30.2 pg (27.0-31.0); MEAN CORPUSCULAR HGB CONC 32.8 g/dL (32.0-36.0); MEAN PLATELET VOLUME 11.1 fL (7.9-10.8); MONOCYTES # (AUTO) 0.4 10^3/uL (0.0-1.0); NEUTROPHILS # (AUTO) 3.7 10^3/uL (1.5-6.6); NEUTROPHILS % (AUTO) 66.3 %; PLT - PLATELET COUNT 168 10^3/uL (130-450); RED BLOOD COUNT 4.11 10^6/uL (4.20-5.40); RED CELL DISTRIBUTION WIDTH 13.3 % (12.0-15.0); WHITE BLOOD COUNT 5.6 x10^3/uL (4.8-10.8)
[2023-02-21 10:06] LABS: ALBUMIN 4.9 g/dL (3.2-5.5); ALBUMIN/GLOBULIN RATIO 1.7 (1.0-2.2); ALKALINE PHOSPHATASE 89 IU/L (42-121); ALT ALANINE AMINOTRANSFERASE 25 IU/L (10-60); AST ASPARTATE AMINOTRANSFERASE 30 IU/L (10-42); BILIRUBIN,TOTAL 0.5 mg/dL (0.2-1.0); BUN - BLOOD UREA NITROGEN 13 mg/dL (6-20); CALCIUM 10.2 mg/dL (8.5-10.3); CARBON DIOXIDE - CO2 29 mmol/L (21-32); CHLORIDE 101 mmol/L (101-111); CHOL/HDL RATIO 4.8 (<4.4); CHOLESTEROL 313 mg/dL; CREATININE 0.8 mg/dL (0.6-1.3); CRP HIGH SENSITIVITY 0.29 mg/L; GFR - MDRD 74 (>89); GLUCOSE 88 mg/dL (74-104); HDL CHOLESTEROL 65 mg/dL; LDL CHOLESTEROL,CALCULATED 191 mg/dL; LDL/HDL RATIO 2.9 (<4.4); POTASSIUM 4.3 mmol/L (3.5-4.5); SODIUM 137 mmol/L (135-145); TOTAL PROTEIN 7.8 g/dL (6.4-8.9); TRIGLYCERIDES 283 mg/dL (48-352); VLDL CHOLESTEROL 57 mg/dL
[2023-02-21 10:17] LABS: THYROID STIMULATING HORMONE 1.29 uIU/mL (0.34-5.60)
[2023-02-21 10:47] LABS: ESTIMATED AVERAGE GLUCOSE 100 mg/dL (70-100); HEMOGLOBIN A1c% 5.1 % (4.27-6.07)
[2023-02-22 07:10] LABS: DHEA-SULFATE 85.7 ug/dL (29.4-220.5); ESTRADIOL <5.0 pg/mL (.)
[2023-02-22 08:10] LABS: VITAMIN D 25-HYDROXY 40.3 ng/mL (30.0-100.0)
== END 2023-02-21 09:29 | disposition home or self-care (01) ==
LOC: LAB 09:28
PROVIDERS: ATTEND Registered Nurse
DX: C50.912 Malignant neoplasm of unspecified site of left female breast (principal); Z13.228 Encounter for screening for other metabolic disorders; Z13.220 Encounter for screening for lipoid disorders; R53.83 Other fatigue; R73.9 Hyperglycemia, unspecified; R50.9 Fever, unspecified; Z13.29 Encounter for screening for other suspected endocrine disorder; Z13.0 Encounter for screening for diseases of the blood and blood-forming organs and certain disorders involving the immune mechanism
CPT/HCPCS: 36415; 80050; 80061; 81599; 82306; 82627; 82670; 83036; 83615; 83721; 84410; 86141

== ENCOUNTER 2023-07-12 08:24 | Outpatient (CLI) | payer OTHER ==
[2023-07-12] MEDS ORDERED: iohexoL-300 100 ML VIAL ONE (08:26)
[2023-07-12] MEDS: iohexoL-300 100 ML VIAL IVP ONE (11:03)
--- NOTE | 2023-07-12 15:04 | CT Report ---
PROCEDURE: Soft Tissue Neck W INDICATIONS: HOARSENESS, SORE THROAT, THROAT CLEARING CONTRAST: iohex 300 100ml TECHNIQUE: After the administration of intravenous contrast, 3.0 mm axial sections acquired from the sella to th e aortic arch. Additional oblique axial 3.0 mm sections acquired through the pharynx. 3 mm thick co jenn reformats were generated. For radiation dose reduction, the following was used: automated exp osure control, adjustment of mA and/or kV according to patient size. COMPARISON: None. FINDINGS: Image quality: Excellent. Lymph nodes: No enlarged lymph nodes seen throughout the neck. Vessels: Visualized vasculature appears patent. Neck spaces: Lingual tonsils are prominent. The nasopharynx, and pharynx demonstrate no mucosal lesi ons. The vocal cords, false vocal cords, pyriform sinuses, epiglottis, vallecula, and tongue base al l appear normal. Extramucosal spaces appear unremarkable. Glands: The parotid and submandibular glands appear normal. The thyroid is normal in size and there are no incidental findings. Miscellaneous: Visualized brain and orbits appear normal. Lung apices appear clear. Superficial so ft tissues appear normal. Bones: No suspicious bony lesions. Visualized sinuses and mastoids appear unremarkable. IMPRESSION: Prominent lingual tonsils which could represent tonsillitis, hypertrophy or neoplastic process. Recom mend correlation with clinical data and direct visualization. No lymphadenopathy based on size criteria. CLINICAL RECOMMENDATION STATEMENTS: In patients <35 years with an ITN detected on CT, MRI, or extrathyroidal ultrasound, the Committee re commends further evaluation with dedicated thyroid ultrasound if the nodule is "e1 cm and has no susp icious imaging features, and if the patient has normal life expectancy. In patients "e35 years with an ITN detected on CT, MRI, or extrathyroidal ultrasound, the Committee r ecommends further evaluation with dedicated thyroid ultrasound if the nodule is "e1.5 cm and has no s uspicious imaging features, and if the patient has normal life expectancy. (ACR, 2014) Reviewed by: Monica Meléndez MD, PhD on 07/12/2023 3:03 PM PDT Approved by: Monica Meléndez MD, PhD on 07/12/2023 3:03 PM PDT Station ID: [id number]
== END 2023-07-12 08:25 | disposition home or self-care (01) ==
LOC: DI 08:24
PROVIDERS: ATTEND Physician Assistant Medical
DX: R49.0 Dysphonia (principal); J02.9 Acute pharyngitis, unspecified; R68.89 Other general symptoms and signs; J98.4 Other disorders of lung
CPT/HCPCS: 70491; Q9967

== ENCOUNTER 2023-08-06 12:08 | Outpatient (CLI) | payer OTHER ==
--- NOTE | 2023-08-06 13:44 | CT Report ---
PROCEDURE: Chest WO INDICATIONS: LUNG NODULE TECHNIQUE: A CT scan of the chest was performed. Intravenous contrast media was not administered. Images were re corded and evaluated at appropriate window settings. Reformats: axial MIP of the chest, coronal and s agittal. For radiation dose reduction, the following was used: automated exposure control, adjustment of mA and/or kV according to patient size. COMPARISON: CXR 01/02/2023. CT chest 10/10/2022. FINDINGS: Image quality: Diagnostic. Chest wall and lower neck: No thyroid nodule which requires sonographic follow up. No axillary or sup raclavicular adenopathy by size. Bilateral breast implants. Left axillary clips. Lungs and pleura: No consolidation. No pleural effusions. No pneumothorax. Partial left lower lobecto my. No recurrent mass. No significant pulmonary nodules. Airways are clear. Mediastinum: Heart size is normal. Mild coronary artery calcifications. Small pericardial effusion. N o large vessel abnormality. No mediastinal adenopathy by size criteria. Bones: No aggressive osseous abnormality. Upper Abdomen: Unremarkable. IMPRESSION: No mass or significant pulmonary nodules. No adenopathy. Partial left lower lobectomy. Left axillary node dissection. Reviewed by: Eugene Pate MD on 08/06/2023 1:43 PM PDT Approved by: Eugene Pate MD on 08/06/2023 1:43 PM PDT Station ID: [id number]
== END 2023-08-06 12:09 | disposition home or self-care (01) ==
LOC: DI 12:08
PROVIDERS: ATTEND Surgery
DX: R91.8 Other nonspecific abnormal finding of lung field (principal); Z90.2 Acquired absence of lung [part of]

== ENCOUNTER 2023-11-27 10:20 | Outpatient (CLI) | payer OTHER ==
--- NOTE | 2023-11-28 10:47 | Ultrasound Report ---
ULTRASOUND OF LEFT AXILLA: 11/27/2023 CLINICAL: Palpable left axilla lump. Comparison is made to exams dated: 09/05/2022 ultrasound biopsy, 10/30/2022 specimen, 08/23/2022 ultrasou nd, 12/17/2020 ultrasound, and 08/23/2020 ultrasound - [facility]. Color flow and real-time ultrasound of the left axilla were performed. Tolbert scale images of the destiny l-time examination were reviewed. There is a 0.5 cm x 0.3 cm x 0.1 cm irregular mass in the subdermal subcutaneous tissues at the end o f the lumpectomy scar in the left axillary tail. This irregular mass is hypoechoic with no posterior features. This correlates as palpated. Color flow imaging demonstrates that there is no vascularit y present. The deep margin of the implant is less than 2mm from the underlying implant capsule. IMPRESSION: SUSPICIOUS OF MALIGNANCY The 0.5 cm x 0.3 cm x 0.1 cm irregular mass is indeterminate and corresponds to the palpable abnormal ity. Differential diagnosis includes both scar tissue, and recurrent malignancy. Given history of re current carcinoma in this area, palpable nature, and close proximity to the underlying breast implant , a surgical consult for excision is recommended. If excision is not performed, 6 month follow up ul trasound is recommended to reassess size. Findings and recommendations were conveyed to the patient at time of exam. This exam was interpreted at Station ID: [id number]. Electronically Signed By: Brittni flores/:11/27/2023 11:31:19 Ultrasound BI-RADS: 4 Suspicious for malignancy BI-RADS CATEGORY: (4) - 4 Unspecified - other [id number] Immediate follow-up LATERALITY: (B)
== END 2023-11-27 10:21 | disposition home or self-care (01) ==
LOC: DI 10:20
PROVIDERS: ATTEND Internal Medicine Hematology & Oncology
DX: C50.912 Malignant neoplasm of unspecified site of left female breast (principal)

== ENCOUNTER 2024-01-09 07:16 | Outpatient (CLI) | payer OTHER ==
[~2024-01-09 07:16] MED LIST changes: -ACETAMINOPHEN 500 MG TABLET PO ONE; +GADOTERATE MEGLUMINE 7.5 MMOL/15 ML VIAL ONE; -ceFAZolin 2 GM VIAL ONE
[2024-01-09] MEDS ORDERED: GADOTERATE MEGLUMINE 7.5 MMOL/15 ML VIAL ONE (07:38)
[2024-01-09] MEDS: GADOTERATE MEGLUMINE 7.5 MMOL/15 ML VIAL IVP ONE (15:54)
--- NOTE | 2024-01-10 14:32 | MRI Report ---
BREAST MRI OF BOTH BREASTS- WITH AUGMENTATION: 01/09/2024 CLINICAL: Palpable left breast lump. Personal history of left breast cancer. PROCEDURE: MRI BREAST BILATERAL WITH AND WITHOUT CONTRAST INDICATIONS: Patient with history of recurrent left breast cancer (2013 in 2022) status post bilater al mastectomies with silicone implant reconstruction. Patient recently presenting with palpable left axillary lump. TECHNIQUE: The patient was placed prone in a dedicated breast imaging coil. Precontrast axial STIR and 3D FLASH without fat saturation sequences were obtained. Both before and after bolus injection of contrast, sequential axial 3D SPAIR with fat saturation sequences with subtraction images and maximum intensity projections (MIP's) generated. Additional axial and sagittal STIR with water saturation (silicone s elective) and coronal T2 were acquired. COMPARISON: Left axilla US 11/27/2023, outside breast MRI dated 10/14/2022 (no report available, [facility] only) FINDINGS: Image quality: There is patient motion which mildly degrades the quality of the exam.. Right breast: Status post mastectomy with silicone implant reconstruction. No evidence of intracaps ular or extracapsular rupture. No suspicious enhancement or lymphadenopathy. Left breast: Status post mastectomy with silicone implant reconstruction. No evidence of intracapsu lar or extracapsular rupture. No suspicious enhancement or lymphadenopathy. Specifically, no MRI co rrelate for previously described suspicious finding in the left axillary region described on ultrasou nd 11/27/2023. IMPRESSION: BENIGN Status post bilateral mastectomies with silicone implant reconstruction. No evidence of intracapsula r or extracapsular rupture. No MRI evidence of malignancy. Clinical follow-up is recommended, and further management of palpable abnormalities or other focal si gns or symptoms should be based on the results of clinical evaluation. If palpable abnormality or oth er concerning symptom persists or progresses, further clinical evaluation should be considered. This exam was interpreted at Station ID: [id number]. Electronically Signed By: Joanne Morton M.D., Ph.D. eb/:01/09/2024 15:22:26 ACR BI-RADS Category 2: Benign 3342F BI-RADS CATEGORY: (2) - 2 Unspecified - other recall n/a LATERALITY: (B)
== END 2024-01-09 07:17 | disposition home or self-care (01) ==
LOC: DI 07:16
PROVIDERS: ATTEND Surgery
DX: N63.21 Unspecified lump in the left breast, upper outer quadrant (principal); Z85.3 Personal history of malignant neoplasm of breast; Z90.13 Acquired absence of bilateral breasts and nipples; Z98.82 Breast implant status

== ENCOUNTER 2024-01-18 10:37 | Day surgery (SDC) | payer OTHER ==
[2024-01-18] MEDS: LACTATED RINGERS 1,000 ML IV ONE ×2 (11:12→14:53)
--- NOTE | 2024-01-18 11:40 | ANESTHESIA ---
Pre-Anesthesia VS, & Labs - Diagnosis L breast mass - Procedure L breast mass excision Vital Signs: Temp Pulse Resp BP Pulse Ox O2 Flow Rate 36.6 C 72 12 115/73 100 01/18/24 10:54 01/18/24 10:54 01/18/24 10:54 01/18/24 10:54 01/18/24 10:54 Height: 5 ft 7 in Weight (kg): 85 kg Body Mass Index: 29.3 BMI Classification: Overweight - NPO >8 hours - Is Patient ?: Not Applicable Home Medications and Allergies Cholecalciferol (Vitamin D3) [Vitamin D3] 2,000 unit PO DAILY 07/15/13 Anastrozole 1 mg PO DAILY 03/27/23 Allergies/Adverse Reactions: Allergies Allergy/AdvReac Type Severity Reaction Status Date / Time tamoxifen AdvReac joint pain Verified 10/30/22 09:05 Anes History & Medical History - Anesthetic History Anesthesia Complications: reports: No previous complications Family history of Anesthesia Complications: Denies Family history of Malignant Hyperthermia: Denies - Medical History Cardiovascular: reports: High cholesterol Pulmonary: reports: Other (L lobectomy, hx of vocal cord polyp "that fell off") Gastrointestinal: reports: Hemorrhoids Urinary: reports: None Neuro: reports: None Musculoskeletal: reports: Osteoporosis Endocrine/Autoimmune: reports: Other (thyroid nodules) Blood Disorders: reports: None Skin: reports: None Smoking Status: Never smoker Psychosocial: reports: Cannabis History of Cancer?: Yes (breast CA) - Surgical History Eyes Ears Nose Throat (EENT): reports: Tonsil/Adenoidectomy Cardiothoracic: reports: Lobectomy Gynecologic: reports: Mastectomy, 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 Exam General: Alert, Oriented x3, Cooperative Dental: WNL Mouth Openin Fingerbreadth Mallampati classification: I Thyromental Distance: 4-6 cm Respiratory: Lungs clear Cardiovascular: Regular rate Plan Anesthesia Type: General Consent for Procedure(s) Verified and Reviewed: Yes Code Status: Attempt Resuscitation ASA classification: 3-Severe systemic disease Is this case an emergency?: No
[2024-01-18] MEDS ORDERED: fentaNYL 100 MCG/2 ML VIAL IVP PRN (11:41)
[2024-01-18] MEDS ORDERED: HYDROmorphone 0.5 MG/0.5 ML SYRINGE IVP PRN (11:41)
[2024-01-18] MEDS ORDERED: ONDANSETRON 4 MG/2 ML VIAL IVP PRN (11:41)
[2024-01-18] MEDS ORDERED: ATROPINE ABBOJECT 1 MG/10 ML SYRINGE IVP PRN (11:41)
[2024-01-18] MEDS ORDERED: NALOXONE 0.4 MG/ML VIAL IVP PRN (11:41)
[2024-01-18] MEDS ORDERED: MORPHINE 2 MG/ML CARPUJECT IVP PRN (11:41)
[2024-01-18] MEDS ORDERED: ePHEDrine 50 MG/ML VIAL IVP PRN (11:41)
[2024-01-18] MEDS ORDERED: LACTATED RINGERS 1,000 ML IV SCH (12:00)
[2024-01-18] MEDS ORDERED: BUPIVACAINE 0.25% PF 10 ML VIAL ONE (13:23)
[2024-01-18] MEDS ORDERED: LIDOCAINE 1%-EPI 1:100000 20 ML MDV ONE (13:23)
[2024-01-18] MEDS ORDERED: METHYLENE BLUE 0.5% 50 MG/10 ML AMPULE ONE (13:23)
[2024-01-18] MEDS ORDERED: MIDAZOLAM 2 MG/2 ML VIAL ONE (13:47)
[2024-01-18] MEDS ORDERED: fentaNYL 100 MCG/2 ML VIAL ONE (13:47)
[2024-01-18] MEDS ORDERED: ceFAZolin 1 GM VIAL ONE (14:03)
[2024-01-18] MEDS ORDERED: ePHEDrine 50 MG/ML VIAL IVP ONE (14:06)
[2024-01-18] MEDS: LIDOCAINE 1%-EPI 1:100000 20 ML MDV SUBQ ONE ×2 (14:13)
[2024-01-18] MEDS: BUPIVACAINE 0.25% PF 10 ML VIAL SUBQ ONE ×2 (14:15)
[2024-01-18] MEDS ORDERED: ONDANSETRON 4 MG/2 ML VIAL ONE (14:16)
[2024-01-18] MEDS ORDERED: DEXAMETHASONE 4 MG/ML VIAL ONE (14:16)
[2024-01-18] MEDS ORDERED: ACETAMINOPHEN 1,000 MG/100 ML 1,000 MG/100 ML BAG IV ONE (14:18)
--- NOTE | 2024-01-18 15:02 | OPERATIVE REPORT ---
Operative Report - General Procedure Date: 01/18/24 Pre-Op Diagnosis: left breast mass Procedure Performed: Excision, left breast mass Post Op Diagnosis: Left breast mass - Procedure Note Primary Surgeon: Mary Crowell DO Anesthesia Provider: Verna Shultz CRNA Anesthesia Technique: General LMA, Local Pathology: 1. Left breast mass, short superior, long lateral, double deep 2. Left breast scar Estimated Blood Loss (mL): 2 Indications: 58yoF with history of recurrent left breast cancer, s/p excision of recurrence October2022 with positive margins, now with palpable lump in same location. Findings: Just deep to the dermis and above the muscle (subpectoral implants present), two pea-sized nodules adjacent to each other were excised, from just inferior to the scar at the upper outer quadrant of the left breast. These nodules corresponded to what was felt by the patient. I also freed up the tethered scar tissue along the skin incision and sent this for pathology. Complications: none - Other Other Information/Narrative: Patient was met in the preoperative holding area where consent was confirmed all questions were answered. She was brought to the operating room placed supine on the operating room table. General anesthesia with an LMA was induced, antibiotics were administered, and a timeout was performed with all members of the team being in agreement. The left chest and axilla were prepped and draped in standard sterile fashion. The prior oblique incision at the left breast upper outer quadrant was injected with local anesthetic and then reopened sharply. The scar was freed from the underlying tissues with Bovie electrocautery and careful dissection, taking care not to dissect through the pectoralis muscle or expose the subpectoral implant. The 2 nodules that corresponded to what the patient was able to palpate were identified just inferior to the scar. They were grasped with Allis clamps and excised from the surrounding tissue using Bovie electrocautery. The specimen was labeled short superior, long lateral, double deep, and passed off the field for pathology The scar was tethered to the pectoralis muscle and Bovie extra cautery was used further to free the scar from the underlying muscle, the excess scar tissue was also removed from the wound and sent for pathology. There was no other tissue that grossly appeared malignant within the wound. The wound was irrigated with warm normal saline. Hemostasis was ensured. The wound was closed with 3-0 Vicryl interrupted deep dermal sutures and a running 4-0 Monocryl subcuticular suture. The wound was dressed with Steri-Strips, gauze, and Tegaderm. The patient was awoken from general anesthesia and transferred to the PACU in good condition. All sponge and needle counts were correct. There was no complications.
[2024-01-18 15:13] VITALS: O2SAT 100
[2024-01-18 15:23] VITALS: BP 122/74
--- NOTE | 2024-01-18 19:07 | ANESTHESIA POST OP EVALUATION ---
Anesthesia Post Eval - Post Anesthesia Eval Vitals: Last Vital Signs Temp 36.9 C 01/18/24 15:19 Pulse 81 01/18/24 15:19 Resp 15 01/18/24 15:19 BP 122/74 01/18/24 15:19 Pulse Ox 100 01/18/24 15:19 O2 Flow Rate CV Function Including HR & BP: Stable Pain Control: Satisfactory Nausea & Vomiting: Negative Mental Status: Baseline Respiratory Status: Airway Patent Hydration Status: Satisfactory Anesthesia Complications: None
== END 2024-01-18 10:38 | disposition home or self-care (01) ==
LOC: SDS 10:37
PROVIDERS: ATTEND Surgery
PROC: 0HBU0ZZ Excision of Left Breast, Open Approach (ICD-10-PCS; principal; 2024-01-18 11:45)
DX: C50.412 Malignant neoplasm of upper-outer quadrant of left female breast (principal); Z17.0 Estrogen receptor positive status [ER+]
CPT/HCPCS: 19120; J0131; J7120